=== PATIENT | female | born 1940 | race Caucasian/White ===

== ENCOUNTER 2016-08-25 16:42 | Emergency (ER) | payer MEDICARE, BC ==
[~2016-08-25] VITALS: Ht 165.1 cm; Wt 63.5 kg
[~2016-08-25 16:42] MED LIST: AMIT25TA9 PO; ATOR40TA PO; FLUO40CA8 PO; HYDR12.5 PO
--- NOTE | 2016-08-25 17:00 | NUR ---
aaox3, came to er c/o NAUSEA X 2 WEEKS, DENIES ANY VOMITING, DIARRHEA, OR ABD PAIN. Resp is even and unlabored with nad noted. skin is warm and non diaphoretic. Dr Alexis at BS for eval.
[2016-08-25 17:29] LABS: BASOPHILS % (AUTO) 0.6 % (0.0-2.0); EOSINOPHILS # (AUTO) 0.1 /CMM (0.0-0.7); EOSINOPHILS % (AUTO) 1.4 % (0.0-6.0); HEMATOCRIT 47 % (33-45); HEMOGLOBIN 14.9 g/dL (11.5-14.8); LYMPHOCYTES # (AUTO) 2.3 /CMM (0.8-4.8); LYMPHOCYTES % (AUTO) 29.2 % (20.0-44.0); MEAN CORPUSCULAR HEMOGLOBIN 28 PG (26.0-33.0); MEAN CORPUSCULAR HGB CONC 32 g/dl (31.0-36.0); MEAN CORPUSCULAR VOLUME 87 fL (82-100); MONOCYTES # (AUTO) 0.7 /CMM (0.1-1.30); NEUTROPHILS # (AUTO) 4.9 /CMM (1.8-8.9); NEUTROPHILS % (AUTO) 59.8 % (43.0-81.0); PLATELET COUNT (AUTO) 217 /CMM (150-450); RDW COEFFICIENT OF VARIATION 13.2 (11.5-15.0)
[2016-08-25] MEDS ORDERED: IV LR 1000 ML 1,000 ML IV ONE (17:30)
[2016-08-25] MEDS ORDERED: ONDANSETRON HCL/PF 4 MG/2 ML VIAL IVP ONE (17:30)
[2016-08-25] MEDS ORDERED: ONDANSETRON HCL/PF 4 MG/2 ML VIAL ONE (17:31)
[2016-08-25] MEDS ORDERED: IV LR 1000 ML 1,000 ML ONE (17:31)
[2016-08-25] MEDS ORDERED: IV SET PRIMARY 1 EA INFUS.SET MC ONE (17:31)
--- NOTE | 2016-08-25 17:31 | NUR ---
PT REFUSING CT SCAN, DR. SAMS IS AWARE.
[2016-08-25] MEDS ORDERED: LORAZEPAM 1 MG TABLET ONE (17:36)
--- NOTE | 2016-08-25 17:38 | NUR ---
Patient refused CT scan, Dr Alexis made aware.
[2016-08-25 17:39] LABS: CALCIUM, SERUM 9.4 mg/dL (8.5-10.1); CARBON DIOXIDE 30 mmol/L (21-32); CHLORIDE 104 mmol/L (98-107); GLUCOSE 97 mg/dL (74-106); POTASSIUM 3.6 mmol/L (3.5-5.1); SODIUM SERUM 141 mmol/L (136-145); UREA NITROGEN, BLOOD 9 mg/dL (7-18)
[2016-08-25 17:43] LABS: INR 0.97 (0.87-1.13); PROTHROMBIN TIME 10.1 SECS (9.5-12.7)
[2016-08-25 17:45] LABS: ALANINE AMINOTRANSFERASE 24 U/L (12-78); ALBUMIN 3.7 g/dL (3.4-5.0); ALKALINE PHOSPHATASE 76 U/L (46-116); ASPARTATE AMINOTRANSFERASE 21 U/L (15-37); BILIRUBIN,DIRECT 0.1 mg/dL (0.0-0.2); BILIRUBIN,TOTAL 0.7 mg/dL (0.2-1.0); LIPASE 198 U/L (73-393); TOTAL PROTEIN, SERUM 7.3 g/dL (6.4-8.2)
[2016-08-25 17:47] LABS: TROPONIN I < 0.017 ng/mL (0.00-0.056)
[2016-08-25 17:59] LABS: SERUM AMMONIA 6 umol/L (11-32)
[2016-08-25] MEDS ORDERED: LORAZEPAM 1 MG TABLET PO ONE (18:00)
[2016-08-25 18:27] VITALS: BP 132/81
--- NOTE | 2016-08-25 18:27 | NUR ---
IV removed. Catheter intact and site benign. Pressure and 4x4 applied to site. No bleeding noted.Patient discharged to home in stable condition. Written and verbal after care instructions given. Patient verbalizes understanding of instruction.
== END 2016-08-25 18:28 | disposition home or self-care (01) ==
LOC: ER 16:47
DX: F41.9 Anxiety disorder, unspecified (principal); F32.9 Major depressive disorder, single episode, unspecified; I10 Essential (primary) hypertension; R79.1 Abnormal coagulation profile
CPT/HCPCS: 36415; 80048-TC; 80076-TC; 82140-TC; 83690-TC; 84484-TC; 85025-TC; 85730-TC; A4606; J2405; J7120; Z7610

== ENCOUNTER 2016-10-28 16:28 | Emergency (ER) | payer MEDICARE, BC ==
[~2016-10-28] VITALS: Ht 162.6 cm; Wt 63.5 kg
--- NOTE | 2016-10-28 16:57 | NUR ---
PRESENTS SELF TO ED DT NAUSEA AND VOMITTING X 2 DAYS. PATIENT IS AAO3, APPEARS IN NO APPARENT DISTRESS, RESPIRATION EVENA AND UNLABORED,. SKIN IS WARM TO TOUCH AND NON DIAPHORETIC,. PATIENT IS AFEBRILE. VSS
[2016-10-28] MEDS ORDERED: IV SET PRIMARY 1 EA INFUS.SET MC ONE (17:06)
[2016-10-28] MEDS ORDERED: ONDANSETRON HCL/PF 4 MG/2 ML VIAL ONE (17:06)
[2016-10-28] MEDS ORDERED: IV D5 LR 500 ML IV ONE (17:06)
[2016-10-28] MEDS ORDERED: PANTOPRAZOLE 40 MG VIAL ONE (17:06)
[2016-10-28 17:12] LABS: BASOPHILS # (AUTO) 0.1 /CMM (0.0-0.2); EOSINOPHILS # (AUTO) 0.1 /CMM (0.0-0.7); EOSINOPHILS % (AUTO) 0.7 % (0.0-6.0); HEMATOCRIT 48 % (33-45); HEMOGLOBIN 15.6 g/dL (11.5-14.8); LYMPHOCYTES # (AUTO) 1.8 /CMM (0.8-4.8); MEAN CORPUSCULAR HEMOGLOBIN 28 PG (26.0-33.0); MEAN CORPUSCULAR HGB CONC 33 g/dl (31.0-36.0); MEAN CORPUSCULAR VOLUME 86 fL (82-100); MONOCYTES # (AUTO) 0.7 /CMM (0.1-1.30); MONOCYTES % (AUTO) 9.4 % (2.0-12.0); NEUTROPHILS # (AUTO) 4.7 /CMM (1.8-8.9); NEUTROPHILS % (AUTO) 64.9 % (43.0-81.0); PLATELET COUNT (AUTO) 266 /CMM (150-450); RDW COEFFICIENT OF VARIATION 13.3 (11.5-15.0); RED BLOOD CELL COUNT(AUTO) 5.58 MIL/uL (4.0-5.2); WHITE BLOOD COUNT (AUTO) 7.4 K/uL (4.3-11.0)
--- NOTE | 2016-10-28 17:16 | NUR ---
MEDICATED PT ORDERED
--- NOTE | 2016-10-28 17:17 | NUR ---
MEDICATED PT ORDERED
[2016-10-28 17:25] LABS: ALANINE AMINOTRANSFERASE 33 U/L (12-78); ALBUMIN 4.1 g/dL (3.4-5.0); ALKALINE PHOSPHATASE 79 U/L (46-116); ASPARTATE AMINOTRANSFERASE 25 U/L (15-37); BILIRUBIN,DIRECT 0.2 mg/dL (0.0-0.2); BILIRUBIN,TOTAL 0.7 mg/dL (0.2-1.0); CALCIUM, SERUM 9.9 mg/dL (8.5-10.1); CARBON DIOXIDE 25 mmol/L (21-32); CHLORIDE 109 mmol/L (98-107); GLUCOSE 99 mg/dL (74-106); LIPASE 168 U/L (73-393); SODIUM SERUM 141 mmol/L (136-145); TOTAL PROTEIN, SERUM 7.8 g/dL (6.4-8.2); UREA NITROGEN, BLOOD 10 mg/dL (7-18)
[2016-10-28] MEDS ORDERED: ONDANSETRON HCL/PF 4 MG/2 ML VIAL IV ONE (17:30)
[2016-10-28] MEDS ORDERED: PANTOPRAZOLE 40 MG VIAL IV ONE (17:30)
[2016-10-28] MEDS ORDERED: IV LR 500 ML IV ONE (17:30)
[2016-10-28] MEDS ORDERED: diphenhydrAMINE HCL 50 MG/ML VIAL ONE (18:07)
[2016-10-28] MEDS ORDERED: LORAZEPAM INJ 2 MG/ML VIAL ONE (18:08)
[2016-10-28] MEDS ORDERED: PROMETHAZINE HCL 25 MG/ML AMPUL ONE (18:13)
[2016-10-28] MEDS ORDERED: LORAZEPAM INJ 2 MG/ML VIAL IV ONE (18:30)
[2016-10-28] MEDS ORDERED: PROMETHAZINE HCL 25 MG/ML AMPUL IV ONE (18:30)
[2016-10-28 19:10] VITALS: BP 122/71
--- NOTE | 2016-10-28 19:11 | NUR ---
Patient discharged to home in stable condition. Written and verbal after care instructions given. Patient verbalizes understanding of instruction.
--- NOTE | 2016-10-28 19:11 | NUR ---
IV removed. Catheter intact and site benign. Pressure and 4x4 applied to site. No bleeding noted.
== END 2016-10-28 19:11 | disposition home or self-care (01) ==
LOC: ER 16:42
DX: R11.2 Nausea with vomiting, unspecified (principal); F32.9 Major depressive disorder, single episode, unspecified; F41.9 Anxiety disorder, unspecified; I10 Essential (primary) hypertension
CPT/HCPCS: 36415; 80048; 80076; 83690; 85025; 93005; 96361; 96374; 96375; 99285; A4606; C9113; J1200; J2060; J2405; J2550; J3490; J7120; Z7610

== ENCOUNTER 2016-10-29 12:35 | Emergency (ER) | payer MEDICARE, BC ==
[~2016-10-29] VITALS: Ht 165.1 cm; Wt 62.6 kg
[2016-10-29] MEDS ORDERED: IV NS 0.9% 1,000 ML ONE (12:50)
[2016-10-29] MEDS ORDERED: IV SET PRIMARY 1 EA INFUS.SET MC ONE (12:50)
--- NOTE | 2016-10-29 12:56 | NUR ---
PRESENTS SELF TO ED DT NAUSEA AND VOMITTING, PATIENT TO ED YESTERDAY FOR SAME REASON. PATIENT IS AAO3, APPEARS IN NO APPARENT DISTRESS, RESPIRATION EVENA AND UNLABORED,. SKIN IS WARM TO TOUCH AND NON DIAPHORETIC,. PATIENT IS AFEBRILE. VSS
--- NOTE | 2016-10-29 12:58 | NUR ---
ACCESSED IV TO RIGHT WRIST 20. BLOOD SAMPLE SENT TO LAB
[2016-10-29] MEDS ORDERED: IV NS 0.9% 1,000 ML BAG IV ONE (13:00)
[2016-10-29 13:02] LABS: BASOPHILS # (AUTO) 0.1 /CMM (0.0-0.2); BASOPHILS % (AUTO) 0.7 % (0.0-2.0); EOSINOPHILS % (AUTO) 0.2 % (0.0-6.0); HEMATOCRIT 43 % (33-45); HEMOGLOBIN 14.6 g/dL (11.5-14.8); LYMPHOCYTES # (AUTO) 1.7 /CMM (0.8-4.8); LYMPHOCYTES % (AUTO) 22.8 % (20.0-44.0); MEAN CORPUSCULAR HEMOGLOBIN 29 PG (26.0-33.0); MEAN CORPUSCULAR HGB CONC 34 g/dl (31.0-36.0); MEAN CORPUSCULAR VOLUME 86 fL (82-100); MONOCYTES # (AUTO) 0.5 /CMM (0.1-1.30); MONOCYTES % (AUTO) 7.5 % (2.0-12.0); NEUTROPHILS % (AUTO) 68.8 % (43.0-81.0); PLATELET COUNT (AUTO) 246 /CMM (150-450); RDW COEFFICIENT OF VARIATION 13.7 (11.5-15.0); RED BLOOD CELL COUNT(AUTO) 5.08 MIL/uL (4.0-5.2); WHITE BLOOD COUNT (AUTO) 7.3 K/uL (4.3-11.0)
[2016-10-29 13:11] LABS: CALCIUM, SERUM 9.5 mg/dL (8.5-10.1); CARBON DIOXIDE 24 mmol/L (21-32); CHLORIDE 110 mmol/L (98-107); CREATININE 0.9 mg/dL (0.6-1.3); GLUCOSE 102 mg/dL (74-106); POTASSIUM 3.2 mmol/L (3.5-5.1); SODIUM SERUM 141 mmol/L (136-145); UREA NITROGEN, BLOOD 9 mg/dL (7-18)
[2016-10-29 13:19] LABS: TROPONIN I < 0.017 ng/mL (0.00-0.056)
[2016-10-29] MEDS ORDERED: METOCLOPRAMIDE HCL 10 MG/2 ML VIAL ONE (13:25)
[2016-10-29 13:26] LABS: ALANINE AMINOTRANSFERASE 27 U/L (12-78); ALBUMIN 3.7 g/dL (3.4-5.0); ALKALINE PHOSPHATASE 72 U/L (46-116); ASPARTATE AMINOTRANSFERASE 24 U/L (15-37); BILIRUBIN,DIRECT 0.2 mg/dL (0.0-0.2); BILIRUBIN,TOTAL 0.6 mg/dL (0.2-1.0); LIPASE 248 U/L (73-393); TOTAL PROTEIN, SERUM 7.3 g/dL (6.4-8.2)
[2016-10-29] MEDS ORDERED: diphenhydrAMINE HCL 50 MG/ML VIAL ONE ×2 (13:26→14:51)
[2016-10-29] MEDS ORDERED: LORAZEPAM INJ 2 MG/ML VIAL ONE (13:29)
[2016-10-29] MEDS ORDERED: diphenhydrAMINE HCL 50 MG/ML VIAL IV ONE ×2 (13:30→15:00)
[2016-10-29] MEDS ORDERED: METOCLOPRAMIDE HCL 10 MG/2 ML VIAL IV ONE (13:30)
[2016-10-29] MEDS ORDERED: ONDANSETRON HCL/PF 4 MG/2 ML VIAL ONE (13:51)
[2016-10-29] MEDS ORDERED: POTASSIUM CHLORIDE 20 MEQ TAB.PRT.SR PO ONE ×2 (13:56→14:00)
[2016-10-29] MEDS ORDERED: LORAZEPAM INJ 2 MG/ML VIAL IV ONE (14:00)
[2016-10-29] MEDS ORDERED: ONDANSETRON HCL/PF - ER 4 MG/2 ML VIAL IV ONE (14:00)
[2016-10-29] MEDS ORDERED: PROMETHAZINE HCL 25 MG/ML AMPUL IV ONE (14:30)
[2016-10-29 14:46] LABS: APPEARANCE,URINE Turbid (CLEAR); BILIRUBIN,URINE SMALL (NEGATIVE); BLOOD, URINE Moderate Ery/uL (NEGATIVE); COLOR,URINE Dark Yellow (YELLOW); KETONES,URINE 15 (NEGATIVE); LEUKOCYTE ESTERASE ,URINE Large (NEGATIVE); NITRITE, URINE Negative (NEGATIVE); PH,URINE 5.5 (5.0-8.0); PROTEIN,URINE 100 mg/dl (NEGATIVE); UGLUCOSE Negative (NEGATIVE); UROBILINOGEN,URINE 0.2 EU/dL (0.2)
[2016-10-29] MEDS ORDERED: PROMETHAZINE HCL 25 MG/ML AMPUL ONE (14:51)
[2016-10-29] MEDS ORDERED: IV NS 0.9% 500 ML IV ONE ×2 (14:51→15:00)
[2016-10-29 14:53] LABS: BACTERIA,URINE Few /HPF (None Seen); SQUAMOUS EPITHELIAL CELL,UR Few /HPF (None Seen); URINE AMORPHOUS URATE Few /HPF (None Seen); WBC,URINE 80-100 /HPF (0-3)
[2016-10-29] MEDS ORDERED: CEPHALEXIN MONOHYDRATE 500 MG CAPSULE PO ONE (15:30)
[2016-10-29] MEDS ORDERED: CEPHALEXIN MONOHYDRATE 250 MG CAPSULE PO ONE (15:45)
[2016-10-29 16:43] VITALS: BP 130/65
--- NOTE | 2016-10-29 16:43 | NUR ---
IV removed. Catheter intact and site benign. Pressure and 4x4 applied to site. No bleeding noted.Patient discharged to home in stable condition. Written and verbal after care instructions given. Patient verbalizes understanding of instruction. ambulatory with a steady gait.
== END 2016-10-29 16:44 | disposition home or self-care (01) ==
LOC: ER 12:36
DX: N39.0 Urinary tract infection, site not specified (principal); R11.2 Nausea with vomiting, unspecified; R19.7 Diarrhea, unspecified; F32.9 Major depressive disorder, single episode, unspecified; I10 Essential (primary) hypertension; F41.9 Anxiety disorder, unspecified
CPT/HCPCS: 36415; 71010; 80048; 80076; 81001; 82962; 83690; 84484; 85025; 93005; 96361; 96374; 96375; 99285; A4606; J1200; J2060; J2405; J2550; J7030; J7040; 81000-TC; J2765; Z7610

== ENCOUNTER 2016-12-05 18:03 | Emergency (ER) | payer MEDICARE, BC ==
[~2016-12-05] VITALS: Ht 152.4 cm; Wt 52.2 kg
--- NOTE | 2016-12-05 18:33 | NUR ---
DIARRHEA X 3 DAYS GOWNED PT AWAITING MD ORDER
--- NOTE | 2016-12-05 18:38 | NUR ---
DR GONZALEZ AT BEDSIDE FOR EVAL
--- NOTE | 2016-12-05 18:45 | NUR ---
LFA #20 IV ACCESS. BLOOD SAMPLE COLLECTED SENT TO LAB
[2016-12-05] MEDS ORDERED: ONDANSETRON HCL/PF 4 MG/2 ML VIAL ONE ×2 (18:59→20:30)
[2016-12-05 19:00] LABS: BASOPHILS # (AUTO) 0.1 /CMM (0.0-0.2); BASOPHILS % (AUTO) 0.7 % (0.0-2.0); EOSINOPHILS # (AUTO) 0.6 /CMM (0.0-0.7); EOSINOPHILS % (AUTO) 6.5 % (0.0-6.0); HEMATOCRIT 48 % (33-45); HEMOGLOBIN 15.8 g/dL (11.5-14.8); LYMPHOCYTES # (AUTO) 2.9 /CMM (0.8-4.8); LYMPHOCYTES % (AUTO) 33.1 % (20.0-44.0); MEAN CORPUSCULAR HEMOGLOBIN 28 PG (26.0-33.0); MEAN CORPUSCULAR HGB CONC 33 g/dl (31.0-36.0); MEAN CORPUSCULAR VOLUME 85 fL (82-100); MONOCYTES # (AUTO) 0.9 /CMM (0.1-1.30); MONOCYTES % (AUTO) 10.8 % (2.0-12.0); NEUTROPHILS # (AUTO) 4.2 /CMM (1.8-8.9); NEUTROPHILS % (AUTO) 48.9 % (43.0-81.0); PLATELET COUNT (AUTO) 287 /CMM (150-450); RDW COEFFICIENT OF VARIATION 13.5 (11.5-15.0); RED BLOOD CELL COUNT(AUTO) 5.63 MIL/uL (4.0-5.2); WHITE BLOOD COUNT (AUTO) 8.7 K/uL (4.3-11.0)
[2016-12-05] MEDS ORDERED: ONDANSETRON HCL/PF 4 MG/2 ML VIAL IVP ONE (19:00)
[2016-12-05] MEDS ORDERED: IV NS 0.9% 500 ML BAG IV ONE (19:00)
--- NOTE | 2016-12-05 19:00 | NUR ---
LOGGING EQUIPMENT OPERATOR AT BEDSIDE
[2016-12-05 19:07] LABS: CALCIUM, SERUM 9.7 mg/dL (8.5-10.1); CARBON DIOXIDE 31 mmol/L (21-32); CHLORIDE 100 mmol/L (98-107); GLUCOSE 103 mg/dL (74-106); POTASSIUM 3.2 mmol/L (3.5-5.1); SODIUM SERUM 138 mmol/L (136-145); UREA NITROGEN, BLOOD 11 mg/dL (7-18)
[2016-12-05 19:13] LABS: ALANINE AMINOTRANSFERASE 27 U/L (12-78); ALBUMIN 3.8 g/dL (3.4-5.0); ALKALINE PHOSPHATASE 118 U/L (46-116); ASPARTATE AMINOTRANSFERASE 24 U/L (15-37); BILIRUBIN,DIRECT 0.1 mg/dL (0.0-0.2); BILIRUBIN,TOTAL 0.6 mg/dL (0.2-1.0); LIPASE 143 U/L (73-393); TOTAL PROTEIN, SERUM 7.7 g/dL (6.4-8.2)
--- NOTE | 2016-12-05 19:23 | NUR ---
PATIENT TAKEN TO CT VIA WC
--- NOTE | 2016-12-05 19:24 | NUR ---
ENDORSE TO PAT FOR YUMIKO
--- NOTE | 2016-12-05 19:25 | NUR ---
PATIENT TO CT.
[2016-12-05 20:10] LABS: APPEARANCE,URINE Slightly Cloudy (CLEAR); BILIRUBIN,URINE Negative (NEGATIVE); BLOOD, URINE Trace-intact Ery/uL (NEGATIVE); COLOR,URINE Yellow (YELLOW); KETONES,URINE Negative (NEGATIVE); LEUKOCYTE ESTERASE ,URINE Small (NEGATIVE); NITRITE, URINE Negative (NEGATIVE); PROTEIN,URINE Negative (NEGATIVE); UGLUCOSE Negative (NEGATIVE); UROBILINOGEN,URINE 0.2 EU/dL (0.2)
[2016-12-05 20:20] LABS: BACTERIA,URINE Few /HPF (None Seen); SQUAMOUS EPITHELIAL CELL,UR Few /HPF (None Seen)
[2016-12-05] MEDS ORDERED: POTASSIUM CHLORIDE 20 MEQ TAB.PRT.SR PO ONE ×2 (20:30)
[2016-12-05] MEDS ORDERED: ONDANSETRON HCL/PF - ER 4 MG/2 ML VIAL IV ONE (20:30)
--- NOTE | 2016-12-05 20:56 | NUR ---
IV removed. Catheter intact and site benign. Pressure and 4x4 applied to site. No bleeding noted. Patient discharged to home in stable condition. Written and verbal after care instructions given. Patient verbalizes understanding of instruction. Patient is ambulatory with steady gait, and said she will be picked up by her friend. No further complaints.
[2016-12-05 20:57] VITALS: BP 129/85
== END 2016-12-05 20:58 | disposition home or self-care (01) ==
LOC: ER 18:05
DX: N39.0 Urinary tract infection, site not specified (principal); R19.7 Diarrhea, unspecified; E86.0 Dehydration; E87.6 Hypokalemia; F32.9 Major depressive disorder, single episode, unspecified; F41.9 Anxiety disorder, unspecified; I10 Essential (primary) hypertension; K76.0 Fatty (change of) liver, not elsewhere classified
CPT/HCPCS: 36415; 74176; 76705; 80048; 80076; 81001; 83690; 85025; 87086; 96374 ×2; 99285; A4606; J2405 ×3; J7040; 71250-TC; 81000-TC; Z7610

== ENCOUNTER 2017-02-18 15:43 | Emergency (ER) | payer MEDICARE, BC ==
[~2017-02-18] VITALS: Ht 165.1 cm; Wt 61.2 kg
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
[2017-02-18] MEDS ORDERED: IV NS 0.9% 1,000 ML BAG IV ONE (16:30)
[2017-02-18] MEDS ORDERED: METOCLOPRAMIDE HCL 10 MG/2 ML VIAL IV ONE (16:30)
--- NOTE | 2017-02-18 16:30 | NUR ---
RFA #18 IV ACCESS. BLOOD SAMPLE COLLECTED SENT TO LAB
[2017-02-18 16:32] LABS: BASOPHILS # (AUTO) 0.1 /CMM (0.0-0.2); BASOPHILS % (AUTO) 0.8 % (0.0-2.0); EOSINOPHILS # (AUTO) 0.2 /CMM (0.0-0.7); EOSINOPHILS % (AUTO) 2.2 % (0.0-6.0); HEMATOCRIT 44 % (33-45); HEMOGLOBIN 14.5 g/dL (11.5-14.8); LYMPHOCYTES # (AUTO) 2.2 /CMM (0.8-4.8); LYMPHOCYTES % (AUTO) 30.8 % (20.0-44.0); MEAN CORPUSCULAR HEMOGLOBIN 28 PG (26.0-33.0); MEAN CORPUSCULAR HGB CONC 33 g/dl (31.0-36.0); MEAN CORPUSCULAR VOLUME 86 fL (82-100); MONOCYTES # (AUTO) 0.8 /CMM (0.1-1.30); MONOCYTES % (AUTO) 11.1 % (2.0-12.0); NEUTROPHILS # (AUTO) 3.8 /CMM (1.8-8.9); NEUTROPHILS % (AUTO) 55.1 % (43.0-81.0); PLATELET COUNT (AUTO) 269 /CMM (150-450); RDW COEFFICIENT OF VARIATION 13.8 (11.5-15.0); RED BLOOD CELL COUNT(AUTO) 5.18 MIL/uL (4.0-5.2); WHITE BLOOD COUNT (AUTO) 7.1 K/uL (4.3-11.0)
[2017-02-18] MEDS ORDERED: METOCLOPRAMIDE HCL 10 MG/2 ML VIAL ONE (16:34)
--- NOTE | 2017-02-18 16:39 | NUR ---
PT TAKEN TO XRAY
[2017-02-18 16:43] LABS: CALCIUM, SERUM 9.7 mg/dL (8.5-10.1); CARBON DIOXIDE 29 mmol/L (21-32); CHLORIDE 105 mmol/L (98-107); CREATININE 0.9 mg/dL (0.6-1.3); GLUCOSE 96 mg/dL (74-106); SODIUM SERUM 140 mmol/L (136-145); UREA NITROGEN, BLOOD 9 mg/dL (7-18)
[2017-02-18 16:47] LABS: PROTHROMBIN TIME 10.4 SECS (9.5-12.7)
[2017-02-18 16:49] LABS: ALANINE AMINOTRANSFERASE 26 U/L (12-78); ALBUMIN 3.5 g/dL (3.4-5.0); ALKALINE PHOSPHATASE 88 U/L (46-116); ASPARTATE AMINOTRANSFERASE 23 U/L (15-37); BILIRUBIN,DIRECT 0.1 mg/dL (0.0-0.2); BILIRUBIN,TOTAL 0.6 mg/dL (0.2-1.0); LIPASE 205 U/L (73-393); POTASSIUM 2.8 mmol/L (3.5-5.1); TOTAL PROTEIN, SERUM 7.1 g/dL (6.4-8.2)
[2017-02-18 16:50] LABS: TROPONIN I < 0.017 ng/mL (0.00-0.056)
[2017-02-18 17:09] LABS: BILIRUBIN,URINE SMALL (NEGATIVE); BLOOD, URINE Trace-intact Ery/uL (NEGATIVE); COLOR,URINE Yellow (YELLOW); KETONES,URINE 40 (NEGATIVE); LEUKOCYTE ESTERASE ,URINE Small (NEGATIVE); NITRITE, URINE Positive (NEGATIVE); PH,URINE 5.5 (5.0-8.0); PROTEIN,URINE 30 mg/dl (NEGATIVE); UGLUCOSE Negative (NEGATIVE); UROBILINOGEN,URINE 0.2 EU/dL (0.2)
[2017-02-18 17:59] LABS: APPEARANCE,URINE HAZY (CLEAR); BACTERIA,URINE Many /HPF (None Seen); RBC,URINE 0-2 /HPF (0-2); SQUAMOUS EPITHELIAL CELL,UR Few /HPF (None Seen); WBC,URINE TOO NUMEROUS TO COUN /HPF (0-3)
--- NOTE | 2017-02-18 18:12 | NUR ---
IV removed. Catheter intact and site benign. Pressure and 4x4 applied to site. No bleeding noted.
--- NOTE | 2017-02-18 18:12 | NUR ---
Patient discharged to home in stable condition. Written and verbal after care instructions given. Patient verbalizes understanding of instruction.
[2017-02-18 18:13] VITALS: BP 130/75
== END 2017-02-18 18:16 | disposition home or self-care (01) ==
LOC: ER 15:48
DX: N39.0 Urinary tract infection, site not specified (principal); R51 Headache; F32.9 Major depressive disorder, single episode, unspecified; F41.9 Anxiety disorder, unspecified; I10 Essential (primary) hypertension; R79.1 Abnormal coagulation profile
CPT/HCPCS: 36415; 70450; 80048; 80076; 81001; 83690; 84484; 85025; 85730; 87077; 87086; 87186; 96361; 96374; 99285; A4606; J2765; J7030; 81000-TC; Z7610

== ENCOUNTER 2017-03-19 05:45 | Emergency (ER) | payer MEDICARE, BC ==
[~2017-03-19] VITALS: Ht 154.9 cm; Wt 56.7 kg
--- NOTE | 2017-03-19 06:00 | NUR ---
PT CAME IN TO ER WITH C/O OF CHEST PAIN. A/O X3. O2 SATING AT 98% ON ROOM AIR. PT STATES SHE TOOK 2 SLEEPING PILLS FOLLOWED BY 4 MORE SLEEPING PILLS BECAUSE THE MEDS WERE NOT WORKING. NO S/S OF DROWSINESS OR SOB. PLACED ON MONITOR, TELE READS SR.
[2017-03-19] MEDS ORDERED: LORAZEPAM INJ 2 MG/ML VIAL ONE ×2 (06:10→06:55)
[2017-03-19] MEDS ORDERED: ASPIRIN 325 MG TABLET ONE (06:23)
[2017-03-19] MEDS ORDERED: IV NS 0.9% 1,000 ML BAG IV ONE (06:30)
[2017-03-19] MEDS ORDERED: ASPIRIN 325 MG TABLET PO ONE (06:30)
[2017-03-19] MEDS ORDERED: LORAZEPAM INJ 2 MG/ML VIAL IV ONE ×2 (06:30→07:00)
[2017-03-19 06:39] LABS: CALCIUM, SERUM 10.7 mg/dL (8.5-10.1); CARBON DIOXIDE 32 mmol/L (21-32); CHLORIDE 99 mmol/L (98-107); CREATININE 1.1 mg/dL (0.6-1.3); GLUCOSE 138 mg/dL (74-106); SODIUM SERUM 140 mmol/L (136-145); UREA NITROGEN, BLOOD 11 mg/dL (7-18)
[2017-03-19 06:42] LABS: INR 0.98 (0.87-1.13); POTASSIUM 2.8 mmol/L (3.5-5.1); PROTHROMBIN TIME 10.2 SECS (9.5-12.7)
[2017-03-19 06:46] LABS: TROPONIN I < 0.017 ng/mL (0.00-0.056)
[2017-03-19] MEDS ORDERED: POTASSIUM CHLORIDE 20 MEQ TAB.PRT.SR PO ONE ×2 (06:55→07:00)
[2017-03-19 07:34] LABS: BASOPHILS # (AUTO) 0.1 /CMM (0.0-0.2); EOSINOPHILS # (AUTO) 0.1 /CMM (0.0-0.7); EOSINOPHILS % (AUTO) 1.9 % (0.0-6.0); HEMATOCRIT 49 % (33-45); HEMOGLOBIN 16.9 g/dL (11.5-14.8); LYMPHOCYTES # (AUTO) 1.7 /CMM (0.8-4.8); LYMPHOCYTES % (AUTO) 27.6 % (20.0-44.0); MEAN CORPUSCULAR HEMOGLOBIN 29 PG (26.0-33.0); MEAN CORPUSCULAR HGB CONC 34 g/dl (31.0-36.0); MEAN CORPUSCULAR VOLUME 85 fL (82-100); MONOCYTES # (AUTO) 0.5 /CMM (0.1-1.30); MONOCYTES % (AUTO) 8.5 % (2.0-12.0); NEUTROPHILS # (AUTO) 3.8 /CMM (1.8-8.9); PLATELET COUNT (AUTO) 265 /CMM (150-450); RDW COEFFICIENT OF VARIATION 13.5 (11.5-15.0); RED BLOOD CELL COUNT(AUTO) 5.82 MIL/uL (4.0-5.2); WHITE BLOOD COUNT (AUTO) 6.2 K/uL (4.3-11.0)
--- NOTE | 2017-03-19 09:16 | NUR ---
IV removed. Catheter intact and site benign. Pressure and 4x4 applied to site. No bleeding noted.
--- NOTE | 2017-03-19 09:16 | NUR ---
Patient discharged to home in stable condition. Written and verbal after care instructions given. Patient verbalizes understanding of instruction.
[2017-03-19 09:17] VITALS: BP 144/71
--- NOTE | 2017-03-19 09:22 | NUR ---
CALLED SW. MACKENZIE LEFT A VOICEMAIL.
--- NOTE | 2017-03-19 09:45 | NUR ---
SHOE PACKER AND ASSEMBLY LOADER AT BEDSIDE FOR EVAL
--- NOTE | 2017-03-19 10:03 | NUR ---
Social service consult requested by LUDWIG Fields to assess home safety. Pt. is a 77 year old female who was admitted to [facility] for dizziness. SHAWNA and case manger Marissa met with pt. bedside. Pt's caregiver Lauren was bedside as well. Pt. is alert and oriented x 4. Pt. resides alone and has her caregiver three times a week from 9AM to 1PM. Pt's caregiver Lauren informed SW that she will inquire with pt's son Freddie if she can provide more caregiving hours to the patient since she has availability. geophysical manager Marissa inquired with pt. if she would like skilled rehab placement at this time. Pt. declined. Pt. is willing to have home health arranged at home. Marissa to arrange home health for pt. and follow up with caregiver Lauren once scheduled. Lauren's contact is . SHAWNA updated ED physician regarding discharge plan.
== END 2017-03-19 09:51 | disposition home or self-care (01) ==
LOC: ER 05:48
DX: T50.901A Poisoning by unspecified drugs, medicaments and biological substances, accidental (unintentional), initial encounter (principal); F41.9 Anxiety disorder, unspecified; F32.9 Major depressive disorder, single episode, unspecified; I10 Essential (primary) hypertension; R79.1 Abnormal coagulation profile; Z79.82 Long term (current) use of aspirin; Y92.89 Other specified places as the place of occurrence of the external cause
CPT/HCPCS: 36415; 71010; 80048; 85025; 85730; 84484; 93005; 96361; 96374; 96376; 99285; A4606; J2060 ×2; J7030; Z7610

== ENCOUNTER 2017-03-23 15:14 | Inpatient (IN) | payer MEDICARE, BC ==
[~2017-03-23] VITALS: Ht 165.1 cm; Wt 59.0 kg
--- NOTE | 2017-03-23 15:14 | NUR ---
BIB CAREGIVER FROM HOME,ABDOMINAL PAIN,NAUSEA AND VOMITING SINCE THIS MORNING. NAD NOTED. PER PT "ZOFRAN DOESNT WORK FOR ME". MD EVALUATING PT AT THIS TIME. VSS. PT PLACED IN GOWN.
[2017-03-23] MEDS ORDERED: IV NS 0.9% 500 ML BAG IV ONE (15:30)
[2017-03-23] MEDS ORDERED: METOCLOPRAMIDE HCL 10 MG/2 ML VIAL ONE (15:39)
[2017-03-23 15:43] LABS: BASOPHILS # (AUTO) 0.1 /CMM (0.0-0.2); BASOPHILS % (AUTO) 0.9 % (0.0-2.0); EOSINOPHILS # (AUTO) 0.3 /CMM (0.0-0.7); EOSINOPHILS % (AUTO) 3.2 % (0.0-6.0); HEMATOCRIT 48 % (33-45); HEMOGLOBIN 16.2 g/dL (11.5-14.8); LYMPHOCYTES # (AUTO) 2.4 /CMM (0.8-4.8); LYMPHOCYTES % (AUTO) 27.5 % (20.0-44.0); MEAN CORPUSCULAR HEMOGLOBIN 29 PG (26.0-33.0); MEAN CORPUSCULAR HGB CONC 34 g/dl (31.0-36.0); MEAN CORPUSCULAR VOLUME 85 fL (82-100); MONOCYTES # (AUTO) 0.8 /CMM (0.1-1.30); MONOCYTES % (AUTO) 8.8 % (2.0-12.0); NEUTROPHILS # (AUTO) 5.3 /CMM (1.8-8.9); NEUTROPHILS % (AUTO) 59.6 % (43.0-81.0); PLATELET COUNT (AUTO) 255 /CMM (150-450); RDW COEFFICIENT OF VARIATION 13.4 (11.5-15.0); RED BLOOD CELL COUNT(AUTO) 5.66 MIL/uL (4.0-5.2); WHITE BLOOD COUNT (AUTO) 8.9 K/uL (4.3-11.0)
[2017-03-23 15:57] LABS: ALANINE AMINOTRANSFERASE 35 U/L (12-78); ALBUMIN 3.6 g/dL (3.4-5.0); ALKALINE PHOSPHATASE 82 U/L (46-116); ASPARTATE AMINOTRANSFERASE 26 U/L (15-37); BILIRUBIN,DIRECT 0.1 mg/dL (0.0-0.2); BILIRUBIN,TOTAL 0.5 mg/dL (0.2-1.0); CARBON DIOXIDE 33 mmol/L (21-32); CHLORIDE 97 mmol/L (98-107); CREATININE 0.9 mg/dL (0.6-1.3); GLUCOSE 106 mg/dL (74-106); LIPASE 1243 U/L (73-393); SODIUM SERUM 135 mmol/L (136-145); TOTAL PROTEIN, SERUM 7.6 g/dL (6.4-8.2); UREA NITROGEN, BLOOD 13 mg/dL (7-18)
[2017-03-23 16:00] LABS: TROPONIN I < 0.017 ng/mL (0.00-0.056)
[2017-03-23] MEDS ORDERED: METOCLOPRAMIDE HCL 10 MG/2 ML VIAL IV ONE (16:00)
[2017-03-23] MEDS ORDERED: ONDANSETRON HCL/PF 4 MG/2 ML VIAL IVP ONE (16:00)
[2017-03-23 16:01] LABS: POTASSIUM 2.8 mmol/L (3.5-5.1)
[2017-03-23] MEDS ORDERED: PROCHLORPERAZINE EDISYLATE 10 MG/2 ML VIAL ONE (16:46)
[2017-03-23] MEDS ORDERED: PROCHLORPERAZINE EDISYLATE 10 MG/2 ML VIAL IVP ONE (17:00)
[2017-03-23 18:24] LABS: APPEARANCE,URINE Clear (CLEAR); BILIRUBIN,URINE Negative (NEGATIVE); BLOOD, URINE Negative Ery/uL (NEGATIVE); COLOR,URINE Yellow (YELLOW); KETONES,URINE Trace (NEGATIVE); LEUKOCYTE ESTERASE ,URINE Moderate (NEGATIVE); NITRITE, URINE Positive (NEGATIVE); PROTEIN,URINE Negative (NEGATIVE); UGLUCOSE Negative (NEGATIVE); UROBILINOGEN,URINE 0.2 EU/dL (0.2)
[2017-03-23] MEDS ORDERED: LORA1TAB PO (18:32)
[2017-03-23] MEDS ORDERED: OLAN15TA3 PO (18:32)
[2017-03-23] MEDS ORDERED: CHOL4PAC2 PO (18:32)
[2017-03-23] MEDS ORDERED: ESCI10TA PO (18:32)
[2017-03-23] MEDS ORDERED: METO-295 PO (18:32)
[2017-03-23] MEDS ORDERED: HYDR25TA4 PO (18:32)
[2017-03-23] MEDS ORDERED: IOHEXOL-300 100 ML VIAL IV ONE (18:37)
[2017-03-23] MEDS ORDERED: IV NS 0.9% 250 ML IV ONE (18:37)
[2017-03-23 18:40] LABS: BACTERIA,URINE Many /HPF (None Seen); RBC,URINE 0-2 /HPF (0-2); SQUAMOUS EPITHELIAL CELL,UR Few /HPF (None Seen)
[2017-03-23] MEDS ORDERED: ONDANSETRON HCL/PF 4 MG/2 ML VIAL ONE ×2 (18:43→20:35)
[2017-03-23] MEDS ORDERED: ONDANSETRON HCL/PF - ER 4 MG/2 ML VIAL IV ONE ×2 (19:00→20:30)
--- NOTE | 2017-03-23 19:00 | NUR ---
assumed care: pt lying in bed, a/o x 3, breathing unlabored, skin warm/dry/intact, no c/o pain at this time, no c/o n/v, updated on plan of care.
--- NOTE | 2017-03-23 20:08 | NUR ---
REPORT CALLED TO TANNING WHEEL FILLER ALLA. PENDING HOSPITAL ADMISSION.
[2017-03-23] MEDS ORDERED: CEFTRIAXONE 1GM BAG (ER ONLY) 50 ML IV ONE (20:36)
[2017-03-23] MEDS: CEFTRIAXONE 1 G in IV D5W 50 ML IV SCH (20:40)
[2017-03-23] MEDS ORDERED: Z GUARD REMEDY 2 OZ OINT TP PRN (21:00)
[2017-03-23] MEDS ORDERED: MAG HYDROX/AL HYDROX/SIMETH 30 ML UDC PO PRN (21:00)
[2017-03-23] MEDS ORDERED: HYDROCODONE/APAP 5/325MG 1 EACH TABLET PO PRN (21:00)
[2017-03-23] MEDS ORDERED: HYDROMORPHONE INJ 2 MG/ML DISP.SYRIN IV PRN (21:00)
[2017-03-23] MEDS ORDERED: ACETAMINOPHEN 325 MG TABLET PO PRN (21:00)
[2017-03-23] MEDS ORDERED: MAGNESIUM HYDROXIDE 30 ML UDC PO PRN (21:00)
--- NOTE | 2017-03-23 21:00 | NUR ---
RN OPENING NOTES RECEIVED PATIENT FROM ED IN STABLE CONDITION. ALERT AND ORIENTED X4, VS STABLE. RESPIRATIONS EVEN AND UNLABORED. NO SOB NOTED. BS X4. PATIENT C/O NAUSEA. IV ACCESS ON RIGHT HAND #18 PATENT AND INTACT, FLUSHING WELL WITH NS. NO REDNESS OR INFILTRATION NOTED. AWAITING FOR MD ORDER. BED IN LOW AND LOCKED POSITION. SIDE RAILS X2. CALL LIGHT WITHIN EASY REACH. WILL CONTINUE TO MONITOR AND ASSESS DURING THE SHIFT.
[2017-03-23] MEDS: ONDANSETRON HCL/PF 4 MG/2 ML VIAL IVP PRN (21:43)
--- NOTE | 2017-03-23 21:43 | NUR ---
RN NOTES PATIENT C/O OF NAUSEA. ZOFRAN 4 MG/2 ML GIVEN PRN. CONTINUE TO MONITOR.
[2017-03-23] MEDS: IV NS 0.9% 1,000 ML IV PRN (21:59)
[2017-03-23 22:00] VITALS: BP 125/69
--- NOTE | 2017-03-23 23:30 | NUR ---
RN NOTES PATIENT C/O PAIN 10/30. PATIENT NPO. CALLED DR HE FOR ORDER DILAUDID IVP. DILAUDID IS OUT OF STOCK. CALLED BACK TO DR FINLEY TO GET PO PAIN MEDICATION.
--- NOTE | 2017-03-23 23:40 | NUR ---
RN NOTES OBTAINED AN ORDER FROM DR FINLEY TO ADMINISTER NORCO PO.
[2017-03-23] MEDS: ZOLPIDEM TARTRATE 5 MG TABLET PO PRN (23:57)
--- NOTE | 2017-03-24 00:03 | NUR ---
RN NOTES ADMINISTERED NORCO FOR PAIN. GAVE MEDICATION WITH A SIP OF WATER. CONTINUE TO MONITOR.
[2017-03-24] MEDS: ONDANSETRON HCL/PF 4 MG/2 ML VIAL IVP PRN (03:51)
[2017-03-24] MEDS: LORAZEPAM INJ 2 MG/ML VIAL IV PRN ×3 (05:03→13:47)
--- NOTE | 2017-03-24 05:03 | NUR ---
RN NOTES ATIVAN O.5 MG/0.25 ML ADMINISTERED IVP. CONTINUE TO MONITOR.
--- NOTE | 2017-03-24 06:56 | NUR ---
RN CLOSING NOTES PATIENT IS SLEEPING IN BED, EASY TO AROUSE, ALERT AND ORIENTED X4. VS STABLE. RESPIRATIONS EVEN AND UNLABORED. NO SOB NOTED. IV ACCESS ON RIGHT HAND #18 PATENT AND INTACT, INFUSING NS AT 100 ML/HR. NO REDNESS OR INFILTRATION NOTED. ALL NEEDS ARE MET AND MEDICATIONS GIVEN PER MD ORDER. BED IN LOW AND LOCKED POSITION. SIDE RAILS X2. CALL LIGHT WITHIN EASY REACH. WILL ENDORSE TO RN DAY SHIFT FOR CONTINUITY OF CARE.
[2017-03-24] MEDS ORDERED: HYDROMORPHONE INJ 2 MG/ML DISP.SYRIN IV PRN (07:00)
--- NOTE | 2017-03-24 07:35 | NUR ---
RN NOTES PATIENT ASLEEP COMFORTABLY IN BED, EASILY AROUSABLE DURING CARE, ABLE TO MAKE NEEDS KNOWN. RESPIRATIONS EVEN AND UNLABORED, CONTINUED ON PAIN MANAGEMENT AT THIS TIME. IV ACCESS TO RIGHT HAND PATENT AND INTACT NO REDNESS OR INFILTRATION NOTED.SAFETY MEASURES IN PLACE, WILL CONTINUE TO MONITOR
[2017-03-24 07:41] LABS: BASOPHILS % (AUTO) 0.4 % (0.0-2.0); EOSINOPHILS # (AUTO) 0.1 /CMM (0.0-0.7); EOSINOPHILS % (AUTO) 1.8 % (0.0-6.0); HEMATOCRIT 48 % (33-45); HEMOGLOBIN 15.7 g/dL (11.5-14.8); LYMPHOCYTES # (AUTO) 1.8 /CMM (0.8-4.8); LYMPHOCYTES % (AUTO) 24.1 % (20.0-44.0); MEAN CORPUSCULAR HEMOGLOBIN 29 PG (26.0-33.0); MEAN CORPUSCULAR HGB CONC 33 g/dl (31.0-36.0); MEAN CORPUSCULAR VOLUME 87 fL (82-100); MONOCYTES # (AUTO) 0.7 /CMM (0.1-1.30); MONOCYTES % (AUTO) 9.4 % (2.0-12.0); NEUTROPHILS # (AUTO) 4.9 /CMM (1.8-8.9); NEUTROPHILS % (AUTO) 64.3 % (43.0-81.0); PLATELET COUNT (AUTO) 184 /CMM (150-450); RED BLOOD CELL COUNT(AUTO) 5.48 MIL/uL (4.0-5.2); WHITE BLOOD COUNT (AUTO) 7.6 K/uL (4.3-11.0)
[2017-03-24 08:00] VITALS: BP 137/60
[2017-03-24 08:06] LABS: CALCIUM, SERUM 9.4 mg/dL (8.5-10.1); CARBON DIOXIDE 29 mmol/L (21-32); CHLORIDE 100 mmol/L (98-107); CREATININE 0.8 mg/dL (0.6-1.3); GLUCOSE 107 mg/dL (74-106); MAGNESIUM 2.1 mg/dL (1.8-2.4); PHOSPHORUS 3.2 mg/dL (2.5-4.9); SODIUM SERUM 139 mmol/L (136-145); UREA NITROGEN, BLOOD 7 mg/dL (7-18)
[2017-03-24] MEDS: PANTOPRAZOLE 40 MG VIAL IV SCH (08:07)
[2017-03-24 08:15] LABS: POTASSIUM 2.6 mmol/L (3.5-5.1)
--- NOTE | 2017-03-24 08:27 | NUR ---
RN NOTES NOTIFIED PHARMACY, SHANNA, ABOUT POTASSIUM BOLUS ORDERS PER SHANNA IT WILL BE DELIVERED TO THE FLOOR WILL CONTINUE TO MONITOR
[2017-03-24] MEDS ORDERED: POTASSIUM CL. PREMIX PERIPHER. 50 ML IV SCH (08:30)
[2017-03-24 08:50] LABS: CHOLESTEROL 270 mg/dL (<200); HDL CHOLESTEROL 56 mg/dL (40-60); LDL 176 mg/dL (0-99); TRIGLYCERIDES 193 mg/dL (30-150)
[2017-03-24] MEDS: Potassium Chloride 10 MEQ in IV D5W 50 ML IV SCH ×6 (09:40→18:21)
[2017-03-24] MEDS ORDERED: PROCHLORPERAZINE EDISYLATE 10 MG/2 ML VIAL IVP PRN (10:00)
[2017-03-24] MEDS: PROCHLORPERAZINE EDISYLATE 10 MG/2 ML VIAL IVP PRN (11:14)
[2017-03-24] MEDS: FENTANYL PF 100MCG/2ML AMPUL IV PRN ×2 (15:17→23:04)
[2017-03-24 16:00] VITALS: BP 131/73
[2017-03-24] MEDS: IV NS 0.9% 1,000 ML IV PRN (18:21)
--- NOTE | 2017-03-24 18:58 | NUR ---
RN NOTES PATIENT ASLEEP COMFORTABLY IN BED, EASILY AROUSABLE DURING CARE, ABLE TO MAKE NEEDS KNOWN. RESPIRATIONS EVEN AND UNLABORED, CONTINUED ON PAIN MANAGEMENT AT THIS TIME. IV ACCESS TO LFA PATENT AND INTACT NO REDNESS OR INFILTRATION NOTED.SAFETY MEASURES IN PLACE, WILL CONTINUE TO MONITOR AND ENDORSE TO NEXT SHIFT FOR CONTINUITY OF CARE
--- NOTE | 2017-03-24 19:44 | NUR ---
RN OPENING NOTES PT RESTING IN BED. NO APPARENT S/S OF PAIN OR DISTRESS. PT IS CURRENTLY NPO. NO COMPLAINTS OF SOB AT THIS TIME. PT HAS A LEFT FA #20 RUNNING NS @100ML/HR. PT TOLERATING FLUIDS WELL. SAFETY MEASURES IN PLACE. BED IN LOW, LOCKED POSITION, 2XSIDERAILS UP. CALL LIGHT WITHIN REACH. WILL CONTINUE TO MONITOR.
[2017-03-24 20:00] VITALS: BP 128/70
[2017-03-24] MEDS: CEFTRIAXONE 1 G in IV D5W 50 ML IV SCH (20:43)
--- NOTE | 2017-03-24 23:05 | NUR ---
PT REQUESTED PAIN MEDICATION FOR ABD PAIN 11/30. WILL ADMINISTER PRN FENTANYL 60 MCG. WILL CONTINUE TO MONITOR PT.
--- NOTE | 2017-03-25 00:05 | NUR ---
PT REQUESTED SLEEP MEDICATION. PT HAD PO ÓSCAR ORDERED. PT CURRENTLY NPO. CALLED DARLENE TO ADVISE. PER ORDERS ONE TIME 25MG BENADRYL IV FOR SLEEP AID. WILL ADMINISTER AND FOLLOW UP WITH PT.
[2017-03-25] MEDS ORDERED: diphenhydrAMINE HCL 50 MG/ML VIAL ONE (00:29)
[2017-03-25] MEDS ORDERED: diphenhydrAMINE HCL 50 MG/ML VIAL IV ONE (00:30)
--- NOTE | 2017-03-25 04:55 | NUR ---
PT REQUESTED ATIVAN FOR ANXIETY. WILL ADMINISTER PRN ATIVAN 0.5MG. WILL CONTINUE TO MONITOR.
[2017-03-25] MEDS: LORAZEPAM INJ 2 MG/ML VIAL IV PRN ×3 (04:58→13:24)
[2017-03-25] MEDS: IV NS 0.9% 1,000 ML IV PRN ×2 (06:13→18:54)
--- NOTE | 2017-03-25 06:46 | NUR ---
RN CLOSING NOTES PT RESTING IN BED. NO APPARENT S/S OF PAIN OR DISTRESS. PT IS CURRENTLY NPO. NO COMPLAINTS OF SOB. PT HAS A LEFT FA #20 RUNNING NS @100ML/HR. PT TOLERATING FLUIDS WELL. PT ABLE TO AMBULATE TO BATHROOM WITH MINIMAL ASSISTANCE. SAFETY MEASURES IN PLACE. BED IN LOW, LOCKED POSITION, 2XSIDERAILS UP. CALL LIGHT WITHIN REACH. ALL PT NEEDS MET. WILL ENDORSE TO DAY SHIFT NURSE FOR CONTINUITY OF CARE.
[2017-03-25 07:18] LABS: BASOPHILS % (AUTO) 0.5 % (0.0-2.0); EOSINOPHILS # (AUTO) 0.1 /CMM (0.0-0.7); EOSINOPHILS % (AUTO) 2.1 % (0.0-6.0); HEMATOCRIT 43 % (33-45); HEMOGLOBIN 14.1 g/dL (11.5-14.8); LYMPHOCYTES # (AUTO) 1.5 /CMM (0.8-4.8); LYMPHOCYTES % (AUTO) 22.8 % (20.0-44.0); MEAN CORPUSCULAR HEMOGLOBIN 29 PG (26.0-33.0); MEAN CORPUSCULAR HGB CONC 33 g/dl (31.0-36.0); MEAN CORPUSCULAR VOLUME 87 fL (82-100); MONOCYTES # (AUTO) 0.7 /CMM (0.1-1.30); MONOCYTES % (AUTO) 11.6 % (2.0-12.0); PLATELET COUNT (AUTO) 200 /CMM (150-450); RDW COEFFICIENT OF VARIATION 14.2 (11.5-15.0); RED BLOOD CELL COUNT(AUTO) 4.96 MIL/uL (4.0-5.2); WHITE BLOOD COUNT (AUTO) 6.4 K/uL (4.3-11.0)
[2017-03-25 07:33] LABS: CARBON DIOXIDE 29 mmol/L (21-32); CHLORIDE 105 mmol/L (98-107); CREATININE 0.6 mg/dL (0.6-1.3); GLUCOSE 94 mg/dL (74-106); SODIUM SERUM 142 mmol/L (136-145); UREA NITROGEN, BLOOD 5 mg/dL (7-18)
[2017-03-25 08:00] VITALS: BP 132/76
--- NOTE | 2017-03-25 08:00 | NUR ---
MS RN OPENING NOTES. PT A&0X3 RESTING SUPINE LOW SEMI FOWLERS. PT TOLERATING ROOM AIR WITH NO SOB. PT REPORTING NO PAIN. PT REPORTING ANXIETY AND REQUESTING MEDICATION, ATIVAN ADMINISTERED. PT WITH IVC AT L FA G#20 INTACT AND OPERATIONAL. PT BRIEFED ON TODAY'S POC. BED IN LOWEST LOCKED POSITION WITH HANDRAILSX3 AND CALL [place] WITHIN REACH. PT WITHOUT CONCERN OR COMPLAINT AT THIS TIME
[2017-03-25 08:03] LABS: POTASSIUM 2.8 mmol/L (3.5-5.1)
[2017-03-25] MEDS: PANTOPRAZOLE 40 MG VIAL IV SCH (09:04)
--- NOTE | 2017-03-25 09:45 | NUR ---
MS RN NOTES. PT RV BY MD NUNU REQUESTING NPO STATUS CHANGED TO NPO EXCEPT MEDS, ORDER PLACED. NOTIFIED RE TIGRE Dunn MD REQUESTING ORAL REPLACEMENT, ORDERS PLACED PHARMACY NOTIFIED.
[2017-03-25] MEDS: POTASSIUM CHLORIDE 20 MEQ POWDER PACKET NG SCH ×3 (10:51→11:50)
--- NOTE | 2017-03-25 11:51 | NUR ---
RN NOTES. PT REFUSED K REPLACEMENT POWDER RECON, INSTEAD PREFER TABLET. DOSE WASTED AND REQUESTED CHANGE WITH PHARMACY.
[2017-03-25] MEDS: POTASSIUM CHLORIDE 20 MEQ TAB.PRT.SR PO SCH ×2 (11:55→13:27)
[2017-03-25] MEDS ORDERED: POTASSIUM CHLORIDE 20 MEQ TAB.PRT.SR PO ONE (12:00)
--- NOTE | 2017-03-25 13:52 | NUR ---
RN NOTES. PT REFUSED ALL RECON. K. TWO DOSES NON ADMIN. REMAINING TWO DOSES 20MEQ PRESCRIBED K REPLACEMENT ADMINISTERED IN TABLET FORM.
[2017-03-25 16:00] VITALS: BP 129/81
--- NOTE | 2017-03-25 18:45 | NUR ---
MS RN NOTES. PT WITH CONTACT PRECAUTIONS R/T: ESBL OF URINE. MD NOTIFIED AND REQUESTING CURRENT IV AB THERAPY CEASED AND MERREM 1G IV Q12, ORDERS PLACED.
--- NOTE | 2017-03-25 18:47 | NUR ---
MS RN CLOSING NOTES. CONTACT PRECAUTIONS R/T: ESBL OF URINE. PT A&0X3 RESTING IN BED. PT NPO. PT TOLERATING ROOM AIR WITH NO SOB. PT REPORTING NO PAIN BUT SOME ANXIETY, PT DECLINED PRN ANXIETY MEDS. PT WITH L FOREARM G#20 INTACT AND OPERATIONAL. ALL DAY SHIFT DUTIES ATTENDED TO, PT WITHOUT CONCERN OR COMPLAINT AT THIS TIME. WILL ENDORSE TO NIGHT NURSE.
[2017-03-25] MEDS: MEROPENEM 1 G in IV NS 0.9% 100 ML IV SCH (18:54)
--- NOTE | 2017-03-25 19:05 | NUR ---
RN OPENING NOTES PT RESTING IN BED. NO APPARENT S/S OF PAIN OR DISTRESS. PT IS NPO. NO COMPLAINTS OF SOB. PT HAS A LEFT FA #20 RUNNING NS @100ML/HR. PT TOLERATING FLUIDS WELL. PT ABLE TO AMBULATE TO BATHROOM WITH MINIMAL ASSISTANCE. SAFETY MEASURES IN PLACE. BED IN LOW, LOCKED POSITION, 2XSIDERAILS UP. CALL LIGHT WITHIN REACH. WILL CONTINUE TO MONITOR.
[2017-03-25 20:00] VITALS: BP 137/67
--- NOTE | 2017-03-25 23:25 | NUR ---
PT REQUESTED SLEEP MEDICATION. WILL ADMINISTER PRN AMBIEN 5MG. WILL CONTINUE TO MONITOR.
[2017-03-25] MEDS: ZOLPIDEM TARTRATE 5 MG TABLET PO PRN (23:26)
--- NOTE | 2017-03-26 04:15 | NUR ---
PT REQUESTED PAIN MEDICATION FOR PAIN LEVEL OF 10/10. WILL ADMINISTER PRN FENTANYL 60MCG. WILL CONTINUE TO MONITOR.
[2017-03-26] MEDS: FENTANYL PF 100MCG/2ML AMPUL IV PRN ×2 (04:17→22:17)
[2017-03-26 05:00] VITALS: BP 132/73
[2017-03-26] MEDS: MEROPENEM 1 G in IV NS 0.9% 100 ML IV SCH ×2 (06:11→17:48)
[2017-03-26] MEDS: LORAZEPAM INJ 2 MG/ML VIAL IV PRN ×2 (06:12→15:33)
[2017-03-26] MEDS: IV NS 0.9% 1,000 ML IV PRN ×2 (06:13→22:05)
[2017-03-26 06:41] LABS: ALANINE AMINOTRANSFERASE 28 U/L (12-78); ALBUMIN 2.9 g/dL (3.4-5.0); ALKALINE PHOSPHATASE 69 U/L (46-116); ASPARTATE AMINOTRANSFERASE 21 U/L (15-37); BILIRUBIN,TOTAL 0.8 mg/dL (0.2-1.0); CALCIUM, SERUM 9.3 mg/dL (8.5-10.1); CARBON DIOXIDE 30 mmol/L (21-32); CHLORIDE 109 mmol/L (98-107); CREATININE 0.6 mg/dL (0.6-1.3); GLUCOSE 79 mg/dL (74-106); LIPASE 236 U/L (73-393); POTASSIUM 3.3 mmol/L (3.5-5.1); SODIUM SERUM 144 mmol/L (136-145); TOTAL PROTEIN, SERUM 6.2 g/dL (6.4-8.2); UREA NITROGEN, BLOOD 5 mg/dL (7-18)
[2017-03-26 06:42] LABS: BASOPHILS % (AUTO) 0.5 % (0.0-2.0); EOSINOPHILS # (AUTO) 0.1 /CMM (0.0-0.7); EOSINOPHILS % (AUTO) 1.1 % (0.0-6.0); HEMATOCRIT 44 % (33-45); HEMOGLOBIN 14.5 g/dL (11.5-14.8); LYMPHOCYTES # (AUTO) 1.5 /CMM (0.8-4.8); LYMPHOCYTES % (AUTO) 17.9 % (20.0-44.0); MEAN CORPUSCULAR HEMOGLOBIN 28 PG (26.0-33.0); MEAN CORPUSCULAR HGB CONC 33 g/dl (31.0-36.0); MEAN CORPUSCULAR VOLUME 86 fL (82-100); MONOCYTES # (AUTO) 0.7 /CMM (0.1-1.30); MONOCYTES % (AUTO) 8.2 % (2.0-12.0); NEUTROPHILS # (AUTO) 6.2 /CMM (1.8-8.9); NEUTROPHILS % (AUTO) 72.3 % (43.0-81.0); PLATELET COUNT (AUTO) 185 /CMM (150-450); RDW COEFFICIENT OF VARIATION 14.4 (11.5-15.0); RED BLOOD CELL COUNT(AUTO) 5.12 MIL/uL (4.0-5.2); WHITE BLOOD COUNT (AUTO) 8.5 K/uL (4.3-11.0)
--- NOTE | 2017-03-26 07:42 | NUR ---
RN OPENING NOTES PT RESTING IN BED. NO APPARENT S/S OF PAIN OR DISTRESS. PT IS NPO. NO COMPLAINTS OF SOB. PT HAS A RIGHT FA #20 RUNNING NS @100ML/HR. PT TOLERATING FLUIDS WELL. PT ABLE TO AMBULATE TO BATHROOM WITH MINIMAL ASSISTANCE. SAFETY MEASURES IN PLACE. BED IN LOW, LOCKED POSITION, 2XSIDERAILS UP. CALL LIGHT WITHIN REACH. WILL ENDORSE TO DAY SHIFT FOR YUMIKO.
--- NOTE | 2017-03-26 07:58 | NUR ---
MS RN NOTES RECEIVED PATIENT IN BED, AWAKE. A/O X4. APPEARS COMFORTABLE IN BED. IV IN RFA G20 PATENT AND INTACT, IV NS INFUSING AT 100ML/HR. DENIES ANY DISCOMFORT, PATIENT IS ON NPO EXCEPT MEDS ORDERED. CALL LIGHT WITHIN REACH. WILL CONT TO MONITOR.
[2017-03-26 08:00] VITALS: BP 138/74
[2017-03-26] MEDS: PANTOPRAZOLE 40 MG VIAL IV SCH (08:30)
[2017-03-26] MEDS ORDERED: POTASSIUM CHLORIDE 10 MEQ TABLET.SA PO ONE (09:30)
--- NOTE | 2017-03-26 11:42 | NUR ---
PATIENT HAS NO EPISODE OF VOMITING, NO C/O NAUSEA, TOLERATED CLEAR LIQUIDS. ADVANCED DIET TO FULL LIQUIDS ORDERED, WILL CONT TO MONITOR.
--- NOTE | 2017-03-26 14:10 | NUR ---
PATIENT HAS EPISODE OF LOOSE STOOL/DIARRHEA X1, BROWN AND SMALL AMT. CURRENTLY ON ANTIBIOTIC IV FOR ESBL URINE, AND WAS ADMITTED ON FOR PANCREATITIS. WILL CONT TO MONITOR. PLACE CALL LIGHT WITHIN REACH.
--- NOTE | 2017-03-26 15:35 | NUR ---
PATIENT IN BED, APPEARS ANXIOUS, DENIES CHEST PAIN. NO SOB. SATING 98% IN RA. ATIVAN 0.5MG IV PRN GIVEN, WILL REASSESS.
[2017-03-26 16:00] VITALS: BP 129/68
--- NOTE | 2017-03-26 16:35 | NUR ---
PATIENT IN BED, APPEARS CALMED AND RELAX, ATIVAN IV PRN EFFECTIVE.
--- NOTE | 2017-03-26 18:25 | NUR ---
MS RN CLOSING NOTES PATIENT IN BED, A/O X4. ON FULL LIQUIDS DIET, TOLERATING WELL, NO EPISODE OF VOMITING AND NAUSEA DURING THE SHIFT. IV IN RFA G20 PATENT AND INTACT, IV NS INFUSING AT 100ML/HR. POTASSIUM CHLORIDE SUPPLEMENTED TODAY. PATIENT WITH ONLY ONE EPISODE OF DIARRHEA DURING THE SHIFT, INSTRUCTED TO CALL NURSE FOR NEXT EPISODE, PATIENT VERBALIZED UNDERSTANDING. ON CONTACT ISOLATION ESBL URINE, CONTACT ISOLATION OBSERVED. WILL ENDORSE TO PITTING MACHINE OPERATOR RN FOR YUMIKO.
--- NOTE | 2017-03-26 19:45 | NUR ---
RN OPENING NOTES RECEIVED REPORT FROM DAYSHIFT RN. FOUND Pt AWAKE, RESTING IN BED,WATCHING TV. RESPIRATIONS EVEN AND UNLABORED. EQUAL CHEST RISE AND FALL. NO S/S OF ACUTE DISTRESS OR SOB NOTED. Pt IS A/OX4, VERBAL, ABLE TO MAKE NEEDS KNOWN. IV ACCESS ON RFA #20G, IVF NS @100ML/HR. SAFETY MEASURES IN PLACE. BED LOW, LOCKED, HOB ELEVATED, SIDE RAILS UP, CALL LIGHT AND BEDSIDE TABLE WITHIN REACH. WILL CONTINUE TO MONITOR Pt THROUGHOUT THE NIGHT FOR SAFETY.
[2017-03-26 20:00] VITALS: BP 129/72
[2017-03-26 22:02] VITALS: BP 129/72
[2017-03-26] MEDS: ZOLPIDEM TARTRATE 5 MG TABLET PO PRN (22:06)
--- NOTE | 2017-03-27 04:00 | NUR ---
RN NOTES STOOL SAMPLE COLLECTED. PLACED IN SPECIMEN FRIDGE.
--- NOTE | 2017-03-27 05:15 | NUR ---
RN NOTES ADMINISTERED 0.5MG OF ATIVAN PER PRN ORDER. WITHDREW 0.5MG FROM 20MG ATIVAN VIAL IN . NONE WASTED.
[2017-03-27] MEDS: LORAZEPAM INJ 2 MG/ML VIAL IV PRN ×3 (05:21→16:23)
[2017-03-27] MEDS: MEROPENEM 1 G in IV NS 0.9% 100 ML IV SCH ×2 (05:31→19:22)
--- NOTE | 2017-03-27 06:49 | NUR ---
RN CLOSING NOTES NO SIGNIFICANT CHANGES IN Pt's CONDITION. Pt REMAINS STABLE AT THIS TIME. ALL NEEDS MET AND ATTENDED TO. SAFETY MEASURES IN PLACE. WILL ENDORSE TO DAYSHIFT RN FOR Pt's YUMIKO.
[2017-03-27 07:11] LABS: BASOPHILS % (AUTO) 0.7 % (0.0-2.0); EOSINOPHILS # (AUTO) 0.1 /CMM (0.0-0.7); EOSINOPHILS % (AUTO) 1.8 % (0.0-6.0); HEMATOCRIT 45 % (33-45); HEMOGLOBIN 14.8 g/dL (11.5-14.8); LYMPHOCYTES # (AUTO) 1.6 /CMM (0.8-4.8); LYMPHOCYTES % (AUTO) 26.8 % (20.0-44.0); MEAN CORPUSCULAR HEMOGLOBIN 28 PG (26.0-33.0); MEAN CORPUSCULAR HGB CONC 33 g/dl (31.0-36.0); MEAN CORPUSCULAR VOLUME 87 fL (82-100); MONOCYTES # (AUTO) 0.6 /CMM (0.1-1.30); MONOCYTES % (AUTO) 10.6 % (2.0-12.0); NEUTROPHILS # (AUTO) 3.6 /CMM (1.8-8.9); NEUTROPHILS % (AUTO) 60.1 % (43.0-81.0); PLATELET COUNT (AUTO) 216 /CMM (150-450); RDW COEFFICIENT OF VARIATION 14.7 (11.5-15.0)
[2017-03-27 07:14] LABS: CARBON DIOXIDE 28 mmol/L (21-32); CHLORIDE 105 mmol/L (98-107); CREATININE 0.8 mg/dL (0.6-1.3); GLUCOSE 98 mg/dL (74-106); POTASSIUM 3.4 mmol/L (3.5-5.1); SODIUM SERUM 140 mmol/L (136-145); UREA NITROGEN, BLOOD 2 mg/dL (7-18)
--- NOTE | 2017-03-27 07:53 | NUR ---
MS RN OPENING NOTES PT RECEIVED A&0X3 , RESTING IN LOW SEMI FOWLERS. PT TOLERATING ROOM AIR WITH NO SOB. PT REPORTING NO PAIN BUT SOME GENERALIZED ANXIETY. PT REPORTING MULTIPLE LOOSE BOWEL MOVEMENTS THIS MORNING. PT WITH IVC G#20 AT R FOREARM INTACT AND OPERATIONAL. BED IN LOWEST LOCKED POSITION WITH HANDRAILSX2 AND CALL [place] WITHIN REACH. PT BRIEFED ON TODAY'S POC. PT WITHOUT CONCERN OR COMPLAINT AT THIS TIME.
[2017-03-27 08:00] VITALS: BP 150/84
[2017-03-27] MEDS: PANTOPRAZOLE 40 MG VIAL IV SCH (08:14)
[2017-03-27] MEDS: PROCHLORPERAZINE EDISYLATE 10 MG/2 ML VIAL IVP PRN ×2 (08:24→13:58)
--- NOTE | 2017-03-27 08:28 | NUR ---
MS RN NOTES. PT REPORTING ANXIETY AND NAUSEA, PRN COMPAZINE ADMINISTERED. WILL CONTINUE TO MONITOR
--- NOTE | 2017-03-27 08:57 | NUR ---
TEXTED DR. [facility]
[2017-03-27] MEDS ORDERED: POTASSIUM CHLORIDE 20 MEQ POWDER PACKET PO SCH (11:00)
--- NOTE | 2017-03-27 11:38 | NUR ---
MS RN NOTES. PT ENDORSED TO [facility] FOR TRANSPORT VIA WHEELCHAIR FOR MRCP. PT EDUCATED AND CONSENT SIGNED.
[2017-03-27] MEDS ORDERED: POTASSIUM CHLORIDE 20 MEQ TAB.PRT.SR PO SCH (12:00)
[2017-03-27] MEDS: IV NS 0.9% 1,000 ML IV PRN (13:58)
[2017-03-27 16:00] VITALS: BP 152/75
--- NOTE | 2017-03-27 18:38 | NUR ---
MS RN CLOSING NOTES. PT A&0X3 RESTING IN BED. PT TOLERATING ROOM AIR WITH SOB. REPORTING NO PAIN AT THIS TIME. PT ANXIETY CURRENTLY TOLERABLE. PT TOLERATING DIET BETTER THIS PM, CONSUMING 100% OF MEAL TRAY WITHOUT N&V. PT IVC REPLACED AND AT LEFT FA G#22 AND IS INTACT AND OPERATIONAL. LAST EPISODE OF LOOSE STOOL AT 1800, PT REPORTING X5 MINOR LOOSE MOVEMENTS TODAY. PT BED IN LOWEST LOCKED POSITION WITH HANDRAILSX3 AND CALL [place] WITHIN REACH. ALL DAY NURSE DUTIES ATTENDED TO. PT WITHOUT CONCERN OR COMPLAINT AT THIS TIME. WILL ENDORSE TO NIGHT NURSE.
--- NOTE | 2017-03-27 19:45 | NUR ---
MS RN NOTES RECEIVED ON BED A/O X4,NO SOB,ISOLATION PRECAUTION FOR ESBL URINE.PRESENT IVF NS AT 100ML/HR RATE ,SITE PATENT VIA LFA.DENIES ABDOMINAL PAIN AT THE MOEMNT.CALL LIGHT IN REACH,NEEDS ANTICIPATED.
--- NOTE | 2017-03-27 19:51 | NUR ---
MS RN NOTES. DR VU INFORMED REGARDING PT REPORTED DIARRHEA. PT REPORTING X5 SMALL, NON FOUL SMELLING LOOSE STOOL. MD REQUESTING PRN IMODIUM AND C.DIFF STOOL CULTURE, ORDERS PLACED. ENDORSED TO NIGHT NURSE.
[2017-03-27 20:00] VITALS: BP 149/84
[2017-03-27] MEDS ORDERED: LOPERAMIDE HCL (2 MG CAP) 2 MG CAPSULE PO PRN (20:00)
[2017-03-27] MEDS: FENTANYL PF 100MCG/2ML AMPUL IV PRN (20:31)
--- NOTE | 2017-03-27 20:31 | NUR ---
MS RN NOTES PAIN MANAGEMENT C/O ABDOMINAL PAIN 9/10 ON PAIN SCALE,BP 149/84,MEDICATED WITH FENTANYL 60MCG(1.2ML) IV ORDERED.WILL MONITOR FOR RELIEF.
--- NOTE | 2017-03-27 21:00 | NUR ---
MS RN NOTES PAIN SCALE GOES DOWN TO 5/10.FALLING ASLEEP THIS TIME.
[2017-03-27] MEDS: ZOLPIDEM TARTRATE 5 MG TABLET PO PRN (23:37)
--- NOTE | 2017-03-27 23:37 | NUR ---
MS RN NOTES C/O INSOMNIA,MEDICATED WITH AMBIEN 5MG PO ORDERED
[2017-03-28] MEDS: IV NS 0.9% 1,000 ML IV PRN ×2 (03:37→15:54)
[2017-03-28] MEDS: LORAZEPAM INJ 2 MG/ML VIAL IV PRN ×2 (05:15→09:36)
--- NOTE | 2017-03-28 05:15 | NUR ---
MS RN NOTES C/O ANXIETY,MEDICATED WITH ATIVAN 0.5MG IV PER PATIENT REQUEST.
[2017-03-28] MEDS: MEROPENEM 1 G in IV NS 0.9% 100 ML IV SCH (05:19)
--- NOTE | 2017-03-28 06:48 | NUR ---
MS RN NOTES CALM AND QUIET IN HER ROOM.NO ACTUAL LOOSE BM NOTED.IVF INFUSING,IN NO ACUTE DISTRESS.CALL LIIGHT IN REACH,NEEDS ATTENDED.WILL ENDORSE TO DAY NURSE FOR YUMIKO.
--- NOTE | 2017-03-28 07:41 | NUR ---
MS RN: INITIAL NOTE RECEIVED PT A/OX4. MS. CONTINENT. USES BSC. AMBULATORY WITH ASSIST. SKIN INTACT. ON FULL LIQUID DIET. NS AT 100ML/HR ON L FA #22. SITE CLEAR AND PATENT. NO REDNESS OR BLEEDING NOTED. NO DISTRESS NOTED. NO SOB NOTED. NO PAIN NOTED. ON ROOM AIR SATING AT 98%. ON CONTACT ISOLATION FOR ESBL URINE. RESTING COMFORTABLY IN BED. CALL LIGHT WITHIN REACH.
[2017-03-28 08:00] VITALS: BP 144/54
[2017-03-28] MEDS: PANTOPRAZOLE 40 MG VIAL IV SCH (08:39)
[2017-03-28] MEDS ORDERED: ONDANSETRON HCL/PF 4 MG/2 ML VIAL IV PRN (09:30)
[2017-03-28 11:33] LABS: BASOPHILS % (AUTO) 0.5 % (0.0-2.0); EOSINOPHILS % (AUTO) 0.7 % (0.0-6.0); HEMATOCRIT 45 % (33-45); HEMOGLOBIN 14.6 g/dL (11.5-14.8); LYMPHOCYTES # (AUTO) 1.7 /CMM (0.8-4.8); LYMPHOCYTES % (AUTO) 22.6 % (20.0-44.0); MEAN CORPUSCULAR HEMOGLOBIN 28 PG (26.0-33.0); MEAN CORPUSCULAR HGB CONC 33 g/dl (31.0-36.0); MEAN CORPUSCULAR VOLUME 87 fL (82-100); MONOCYTES # (AUTO) 0.7 /CMM (0.1-1.30); MONOCYTES % (AUTO) 9.7 % (2.0-12.0); NEUTROPHILS # (AUTO) 4.9 /CMM (1.8-8.9); NEUTROPHILS % (AUTO) 66.5 % (43.0-81.0); PLATELET COUNT (AUTO) 207 /CMM (150-450); RED BLOOD CELL COUNT(AUTO) 5.16 MIL/uL (4.0-5.2); WHITE BLOOD COUNT (AUTO) 7.4 K/uL (4.3-11.0)
[2017-03-28 12:53] LABS: ALANINE AMINOTRANSFERASE 19 U/L (12-78); ALBUMIN 3.1 g/dL (3.4-5.0); ALKALINE PHOSPHATASE 82 U/L (46-116); ASPARTATE AMINOTRANSFERASE 19 U/L (15-37); BILIRUBIN,TOTAL 0.8 mg/dL (0.2-1.0); CALCIUM, SERUM 9.1 mg/dL (8.5-10.1); CARBON DIOXIDE 26 mmol/L (21-32); CHLORIDE 107 mmol/L (98-107); CREATININE 0.6 mg/dL (0.6-1.3); GLUCOSE 131 mg/dL (74-106); LIPASE 254 U/L (73-393); SODIUM SERUM 143 mmol/L (136-145); TOTAL PROTEIN, SERUM 6.7 g/dL (6.4-8.2); UREA NITROGEN, BLOOD 1 mg/dL (7-18)
[2017-03-28 13:47] LABS: POTASSIUM 2.6 mmol/L (3.5-5.1)
[2017-03-28] MEDS ORDERED: POTASSIUM CHLORIDE 20 MEQ TAB.PRT.SR PO ONE (14:00)
[2017-03-28 16:00] VITALS: BP 143/77
--- NOTE | 2017-03-28 18:44 | NUR ---
MS RN: CLOSING NOTE PT TOOK ALL MEDICATIONS ON TIME. NO ADVERSE REACTIONS NOTED. NO PAIN NOTED. NO SOB NOTED. NO DISTRESS NOTED. A/OX4. MS. CONTINENT WITH BSC. AMBULATORY WITH ASSIST. SKIN INTACT. ON FULL LIQUID DIET. TO ADVANCE TOLERATED. NS AT R FA #22. AT 100ML/HR. SITE CLEAR AND PATENT. ON CONTACT ISOLATION FOR ESBL URINE. RESTING COMFORTABLY IN BED. CALL LIGHT WITHIN REACH.
[2017-03-28 20:00] VITALS: BP_SYST 142; BP_DIAS 54; BP_DIAS 84
--- NOTE | 2017-03-28 20:00 | NUR ---
MS NADINE INITIAL NOTES SEEN PT IN BED SITTING WITH IVF OF NS AT 100ML/HR . AWARE WHERE SHE AT AND HOW TO USED THE CALL LIGHT SYSTEM. NO SIGNS OF ANY ACUTE DISCOMFORT NOTED AT THIS TIME. KEPT HER WARM AND COMFORTABLE AT ALL TIMES. WILL CONTINUE TO MONITOR. ISOLATION PRECAUTION IMPLEMENTED AND OBSERVED. PLACE CALL LIGHT AT REACH.
[2017-03-28] MEDS: FENTANYL PF 100MCG/2ML AMPUL IV PRN (20:40)
[2017-03-29] MEDS: ZOLPIDEM TARTRATE 5 MG TABLET PO PRN (00:07)
[2017-03-29] MEDS ORDERED: LORAZEPAM 0.5 MG TABLET ONE (05:15)
[2017-03-29] MEDS ORDERED: LORAZEPAM 0.5 MG TABLET PO PRN (05:30)
--- NOTE | 2017-03-29 07:20 | NUR ---
MS GYRO COMPASS TESTER CLOSING NOTES PT RESTING AFTER ATIVAN GIVEN. BREATHING EVEN AND NON-LABORED, NOT IN ANY ACUTE DISTRESS NOTED. SLEPT WELL AFTER SLEEP MEDS GIVEN. ALL DUE MEDS GIVEN AND ALL NEEDS MET. ON SEMI FOWLERS POSITION WITH SIDE RAILS UP AND PLACE CALL LIGHT AT REACH. ENDORSE TO AM NURSE.
--- NOTE | 2017-03-29 07:39 | NUR ---
MS RN: INITIAL NOTE RECEIVED PT A/OX4. MS. BSC. AMBULATORY WITH AND WITHOUT ASSIST. NO DISTRESS NOTED. NO PAIN NOTED. NO SOB NOTED. SKIN INTACT. ON FULL LIQUID DIET. IV ON RFA RUNNING NS AT 100ML/HR. SITE CLEAR AND PATENT. RESTING COMFORTABLY IN BED. CALL LIGHT WITHIN REACH. ON CONTACT ISOLATION FOR ESBL URINE.
[2017-03-29] MEDS: IV NS 0.9% 1,000 ML IV PRN (07:57)
[2017-03-29 08:00] VITALS: BP 145/74
[2017-03-29] MEDS: PANTOPRAZOLE 40 MG VIAL IV SCH (08:00)
[2017-03-29 08:11] LABS: BASOPHILS % (AUTO) 0.5 % (0.0-2.0); EOSINOPHILS # (AUTO) 0.1 /CMM (0.0-0.7); EOSINOPHILS % (AUTO) 1.3 % (0.0-6.0); HEMATOCRIT 46 % (33-45); HEMOGLOBIN 15.1 g/dL (11.5-14.8); LYMPHOCYTES # (AUTO) 1.8 /CMM (0.8-4.8); LYMPHOCYTES % (AUTO) 25.3 % (20.0-44.0); MEAN CORPUSCULAR HEMOGLOBIN 29 PG (26.0-33.0); MEAN CORPUSCULAR HGB CONC 33 g/dl (31.0-36.0); MEAN CORPUSCULAR VOLUME 87 fL (82-100); MONOCYTES # (AUTO) 0.7 /CMM (0.1-1.30); MONOCYTES % (AUTO) 9.6 % (2.0-12.0); NEUTROPHILS # (AUTO) 4.4 /CMM (1.8-8.9); NEUTROPHILS % (AUTO) 63.3 % (43.0-81.0); PLATELET COUNT (AUTO) 223 /CMM (150-450); RDW COEFFICIENT OF VARIATION 14.2 (11.5-15.0); RED BLOOD CELL COUNT(AUTO) 5.25 MIL/uL (4.0-5.2); WHITE BLOOD COUNT (AUTO) 6.9 K/uL (4.3-11.0)
[2017-03-29 08:22] LABS: CALCIUM, SERUM 9.4 mg/dL (8.5-10.1); CARBON DIOXIDE 27 mmol/L (21-32); CHLORIDE 107 mmol/L (98-107); CREATININE 0.7 mg/dL (0.6-1.3); GLUCOSE 108 mg/dL (74-106); LIPASE 234 U/L (73-393); POTASSIUM 3.1 mmol/L (3.5-5.1); SODIUM SERUM 143 mmol/L (136-145); UREA NITROGEN, BLOOD 1 mg/dL (7-18)
--- NOTE | 2017-03-29 11:21 | NUR ---
MS RN: DISCHARGE NOTE PT DISCHARGED HOME WITH SELF CARE AND CAREGIVER. TOOK ALL MEDICATIONS ON TIME. NO ADVERSE REACTIONS NOTED. NO PAIN NOTED. A/OX4. NO SOB NOTED. IV ON R FA #22 REMOVED. SITE CLEAR. NO REDNESS NOTED. NO BLEEDING NOTED. ALL DISCHARGE INFORMATION SIGNED AND COPIES PROVIDED TO PT. ALL VALUABLES ACCOUNTED FOR. NEW PRESCRIPTIONS GIVEN. LEFT FACILITY VIA PRIVATE CARE WITH CAREGIVER ISRAEL.
[2017-03-29] MEDS ORDERED: POTASSIUM CHLORIDE 20 MEQ TAB.PRT.SR PO SCH (11:30)
== END 2017-03-29 11:30 | disposition home or self-care (01) | DRG 439 ==
LOC: ER 15:16 → MED 20:30
PROVIDERS: ADMIT Internal Medicine; ATTEND Internal Medicine
DX: K85.90 Acute pancreatitis without necrosis or infection, unspecified (principal); N39.0 Urinary tract infection, site not specified; K83.8 Other specified diseases of biliary tract; F03.90 Unspecified dementia, unspecified severity, without behavioral disturbance, psychotic disturbance, mood disturbance, and anxiety; E78.5 Hyperlipidemia, unspecified; F32.9 Major depressive disorder, single episode, unspecified; I10 Essential (primary) hypertension; F41.9 Anxiety disorder, unspecified; I70.0 Atherosclerosis of aorta; Z79.899 Other long term (current) drug therapy; E87.6 Hypokalemia; K52.9 Noninfective gastroenteritis and colitis, unspecified
CPT/HCPCS: 36415; 71010-TC; 74181-TC; 76705-TC; 80048-TC; 80053-TC; 80061-TC; 80076-TC; 81000-TC; 83605-TC; 83690-TC; 83735-TC; 84100-TC; 84484-TC; 85025-TC; 87040-TC; 87045-TC; 87081-TC; 87086-TC; 87186-TC; A4606; C9113; J0696; J0780; J1200; J2060; J2185; J2405; J2765; J3010; J3480; J7030; J7040; J7050; J7060; Q9967; Z7610

== ENCOUNTER 2017-07-17 10:36 | Emergency (ER) | payer MEDICARE, BC ==
[~2017-07-17] VITALS: Ht 162.6 cm; Wt 56.7 kg
[~2017-07-17 10:36] MED LIST changes: -AMIT25TA9 PO; +CHOL4PAC2 PO; +ESCI10TA PO; -FLUO40CA8 PO; -HYDR12.5 PO; +HYDR25TA4 PO; +LORA1TAB PO; +METO-295 PO; +OLAN15TA3 PO
--- NOTE | 2017-07-17 10:40 | NUR ---
PT PLACED ON NON-REBREATHER.
--- NOTE | 2017-07-17 10:48 | NUR ---
code stroke called
[2017-07-17] MEDS ORDERED: IV NS 0.9% 1,000 ML BAG IV ONE ×2 (11:00→12:00)
[2017-07-17] MEDS ORDERED: KETOROLAC TROMETHAMINE 15 MG/ML VIAL ONE (11:36)
[2017-07-17] MEDS ORDERED: ONDANSETRON HCL/PF 4 MG/2 ML VIAL ONE (11:36)
[2017-07-17 11:46] LABS: BASOPHILS # (AUTO) 0.1 /CMM (0.0-0.2); BASOPHILS % (AUTO) 1.1 % (0.0-2.0); EOSINOPHILS % (AUTO) 0.9 % (0.0-6.0); HEMATOCRIT 49 % (33-45); HEMOGLOBIN 16.4 g/dL (11.5-14.8); LYMPHOCYTES # (AUTO) 1.8 /CMM (0.8-4.8); LYMPHOCYTES % (AUTO) 22.3 % (20.0-44.0); MEAN CORPUSCULAR HGB CONC 33 g/dl (31.0-36.0); MEAN CORPUSCULAR VOLUME 85 fL (82-100); MONOCYTES # (AUTO) 0.7 /CMM (0.1-1.30); MONOCYTES % (AUTO) 8.9 % (2.0-12.0); NEUTROPHILS # (AUTO) 5.2 /CMM (1.8-8.9); NEUTROPHILS % (AUTO) 66.8 % (43.0-81.0); PLATELET COUNT (AUTO) 272 /CMM (150-450); RDW COEFFICIENT OF VARIATION 14.1 (11.5-15.0); RED BLOOD CELL COUNT(AUTO) 5.78 MIL/uL (4.0-5.2); WHITE BLOOD COUNT (AUTO) 7.9 K/uL (4.3-11.0)
[2017-07-17 12:00] LABS: INR 0.94 (0.85-1.15)
[2017-07-17] MEDS ORDERED: ONDANSETRON HCL/PF 4 MG/2 ML VIAL IVP ONE (12:00)
[2017-07-17] MEDS ORDERED: KETOROLAC TROMETHAMINE INJ 30 MG/ML VIAL IV ONE (12:00)
[2017-07-17 12:08] LABS: TROPONIN I < 0.017 ng/mL (0.00-0.056)
[2017-07-17 12:11] LABS: CALCIUM, SERUM 9.7 mg/dL (8.5-10.1); CARBON DIOXIDE 29 mmol/L (21-32); CHLORIDE 103 mmol/L (98-107); CREATININE 0.8 mg/dL (0.6-1.3); GLUCOSE 97 mg/dL (74-106); POTASSIUM 3.3 mmol/L (3.5-5.1); SODIUM SERUM 141 mmol/L (136-145); UREA NITROGEN, BLOOD 14 mg/dL (7-18)
[2017-07-17 12:17] LABS: ALANINE AMINOTRANSFERASE 30 U/L (12-78); ALBUMIN 3.5 g/dL (3.4-5.0); ALKALINE PHOSPHATASE 71 U/L (46-116); ASPARTATE AMINOTRANSFERASE 22 U/L (15-37); BILIRUBIN,DIRECT 0.2 mg/dL (0.0-0.2); BILIRUBIN,TOTAL 0.8 mg/dL (0.2-1.0); LIPASE 124 U/L (73-393); TOTAL PROTEIN, SERUM 7.5 g/dL (6.4-8.2)
[2017-07-17] MEDS ORDERED: METOCLOPRAMIDE HCL 10 MG/2 ML VIAL IV STA (13:09)
[2017-07-17] MEDS ORDERED: METOCLOPRAMIDE HCL 10 MG/2 ML VIAL ONE (13:11)
[2017-07-17] MEDS ORDERED: diphenhydrAMINE HCL 50 MG/ML VIAL ONE (13:21)
[2017-07-17] MEDS ORDERED: diphenhydrAMINE HCL 50 MG/ML VIAL IV ONE (13:30)
[2017-07-17 14:06] VITALS: BP 153/87
== END 2017-07-17 14:18 | disposition home or self-care (01) ==
LOC: ER 10:37
DX: R11.2 Nausea with vomiting, unspecified (principal); R10.13 Epigastric pain; I10 Essential (primary) hypertension; F41.9 Anxiety disorder, unspecified; F32.9 Major depressive disorder, single episode, unspecified
CPT/HCPCS: 36415; 76705-TC; 80048-TC; 80076-TC; 83690-TC; 84484-TC; 85025-TC; 85730-TC; A4606; J1200; J1885; J2405; J2765; J7030; Z7610

== ENCOUNTER 2017-07-19 08:02 | Inpatient (IN) | payer MEDICARE, BC ==
[~2017-07-19] VITALS: Ht 162.6 cm; Wt 55.8 kg
--- NOTE | 2017-07-19 08:02 | NUR ---
NAUSEA AND DIARRHEA SINCE SHE WAS SEEN 2 DAYS AGO FOR SAME SX UNABLE TO EAT/ DRINK
[2017-07-19] MEDS ORDERED: METOCLOPRAMIDE HCL 10 MG/2 ML VIAL ONE (08:43)
[2017-07-19] MEDS ORDERED: diphenhydrAMINE HCL 50 MG/ML VIAL ONE (08:43)
[2017-07-19] MEDS ORDERED: FAMOTIDINE/PF INJ 20 MG/2 ML VIAL IV ONE ×2 (08:44→09:00)
[2017-07-19 08:49] LABS: BASOPHILS % (AUTO) 0.5 % (0.0-2.0); EOSINOPHILS % (AUTO) 0.3 % (0.0-6.0); HEMATOCRIT 47 % (33-45); HEMOGLOBIN 15.9 g/dL (11.5-14.8); LYMPHOCYTES # (AUTO) 1.3 /CMM (0.8-4.8); LYMPHOCYTES % (AUTO) 17.9 % (20.0-44.0); MEAN CORPUSCULAR HGB CONC 34 g/dl (31.0-36.0); MEAN CORPUSCULAR VOLUME 85 fL (82-100); MONOCYTES # (AUTO) 0.5 /CMM (0.1-1.30); MONOCYTES % (AUTO) 7.3 % (2.0-12.0); NEUTROPHILS # (AUTO) 5.5 /CMM (1.8-8.9); PLATELET COUNT (AUTO) 245 /CMM (150-450); RED BLOOD CELL COUNT(AUTO) 5.47 MIL/uL (4.0-5.2); WHITE BLOOD COUNT (AUTO) 7.3 K/uL (4.3-11.0)
[2017-07-19] MEDS ORDERED: POTA20TA83 PO (08:54)
[2017-07-19] MEDS ORDERED: BUDE3CAP8 PO (08:54)
[2017-07-19 08:58] LABS: CARBON DIOXIDE 31 mmol/L (21-32); CHLORIDE 104 mmol/L (98-107); CREATININE 0.8 mg/dL (0.6-1.3); GLUCOSE 107 mg/dL (74-106); SODIUM SERUM 141 mmol/L (136-145); UREA NITROGEN, BLOOD 9 mg/dL (7-18)
[2017-07-19] MEDS ORDERED: METOCLOPRAMIDE HCL 10 MG/2 ML VIAL IV ONE (09:00)
[2017-07-19] MEDS ORDERED: IV NS 0.9% 1,000 ML BAG IV ONE (09:00)
[2017-07-19] MEDS ORDERED: diphenhydrAMINE HCL 50 MG/ML VIAL IV ONE (09:00)
[2017-07-19 09:04] LABS: ALANINE AMINOTRANSFERASE 32 U/L (12-78); ALBUMIN 3.8 g/dL (3.4-5.0); ALKALINE PHOSPHATASE 70 U/L (46-116); ASPARTATE AMINOTRANSFERASE 24 U/L (15-37); BILIRUBIN,DIRECT 0.2 mg/dL (0.0-0.2); BILIRUBIN,TOTAL 0.9 mg/dL (0.2-1.0); LIPASE 175 U/L (73-393)
--- NOTE | 2017-07-19 09:33 | NUR ---
VERBAL ORDER ZOFRAN 4MG IV X1 DR YUN
[2017-07-19] MEDS ORDERED: ONDANSETRON HCL/PF 4 MG/2 ML VIAL ONE ×2 (09:34→11:52)
[2017-07-19] MEDS ORDERED: ONDANSETRON HCL/PF - ER 4 MG/2 ML VIAL IV ONE (10:00)
[2017-07-19] MEDS ORDERED: LORAZEPAM INJ 2 MG/ML VIAL ONE (10:16)
[2017-07-19] MEDS ORDERED: LORAZEPAM INJ 2 MG/ML VIAL IV ONE (10:30)
--- NOTE | 2017-07-19 11:12 | NUR ---
DR LAURA DIAZ
--- NOTE | 2017-07-19 11:38 | NUR ---
PT UNABLE TO PROVIDE URINE WAS ON BEDPAN. URINATED ON DIAPER. DR YUN AWARE
--- NOTE | 2017-07-19 11:49 | NUR ---
GAVE REPORT TO [facility] [address] SANCHEZ ADMITTING . VOMITING DX
--- NOTE | 2017-07-19 11:51 | NUR ---
VERBAL ORDER ZOFRAN 4MG IV X1 NAUSEA DR YUN
[2017-07-19 12:00] VITALS: BP 133/78
[2017-07-19 12:30] VITALS: BP 133/78
--- NOTE | 2017-07-19 12:30 | NUR ---
RECEIVED PT FROM ER C/O NAUSEA AND DIARRHEA AND UNABLE TO EAT SINCE LAST SUNDAY(TOTAL OF 4 DAYS)WITH DX OF INTRACTABLE VOMITING WITH DEHYDRATION AND COLITIS.PT IS ALERT AND ORIENTED X4.VERBALLY RESPONSIVE.RESPIRATIONS NON LABORED IN ROOM AIR.SKIN INTACT.WITH IV H/L INTACT.WILL NOTIFY DR SANCHEZ FOR ADMITTING ORDERS.CALLED DR SANCHEZ'S OFFICE AND THEIR OFFICE IS CLOSED AT THIS TIME FOR LUNCH BREAK TILL 1:30PM.PT AND CG AT BEDSIDE MADE AWARE.
--- NOTE | 2017-07-19 13:00 | NUR ---
PT HAS NO S/S OF N/V ,PAIN OR DISTRESS.CALL LIGHT PLACED WITHIN REACH.
[2017-07-19] MEDS ORDERED: LORAZEPAM 1 MG TABLET PO PRN (14:00)
[2017-07-19] MEDS ORDERED: IV D5/0.45 NACL 1,000 ML IV PRN (14:00)
[2017-07-19] MEDS: diphenhydrAMINE HCL 50 MG/ML VIAL IV PRN ×2 (14:20→20:25)
[2017-07-19] MEDS ORDERED: METOCLOPRAMIDE HCL 10 MG/10 ML UDC GT PRN (14:30)
[2017-07-19] MEDS: IV D5/0.45 NACL 1,000 ML IV SCH (15:10)
[2017-07-19 16:15] VITALS: BP 107/67
--- NOTE | 2017-07-19 19:27 | NUR ---
PT COMFORTABLY SITTING IN BED WATCHING TV WITH ONGOING IVF OF D51/2 NS AT 75 ML/HR INFUSING WELL.DENIES PAIN OR DISTRESS.CALL LIGHT PLACED WITHIN REACH.
--- NOTE | 2017-07-19 19:30 | NUR ---
MS RN NOTES RECEIVED ON BED A/O X4,BREATHING REGULAR,NOT IN ANY FORM OF DISTRESS.WITH IVF INFUSING VIA IV PUMP ON LEFT AC,INTACT AND PATENT.CLAIMED HAVING SLIGHT NAUSEA,BUT NO ACTUAL VOMITING.CALL LIGHT IN REACH,NEEDS ANTICIPATED.
[2017-07-19 20:00] VITALS: BP 134/64
[2017-07-19] MEDS: METOCLOPRAMIDE HCL 10 MG/10 ML UDC PO PRN (20:24)
--- NOTE | 2017-07-19 20:24 | NUR ---
MS RN NOTES C/O NAUSEA,REGLAN 10MG PO GIVEN,ALONG WITH BENADRYL 50MG IV PER PATIENT REQUEST FOR ITCH.
[2017-07-19] MEDS: OLANZAPINE 10 MG TABLET PO SCH (22:05)
[2017-07-19] MEDS: ATORVASTATIN 40 MG TABLET PO SCH (22:05)
[2017-07-20] VITALS: BP 119/59
[2017-07-20] MEDS: ZOLPIDEM TARTRATE 10 MG TABLET PO PRN (00:16)
--- NOTE | 2017-07-20 00:16 | NUR ---
MS RN NOTES C/O INSOMNIA,AMBIEN 10MG PO GIVEN ORDERED FOR SLEEP.
[2017-07-20] MEDS: IV D5/0.45 NACL 1,000 ML IV SCH (04:38)
--- NOTE | 2017-07-20 06:15 | NUR ---
MS RN NOTES AWAKE,ASKING FOR HER REGLAN AND BENADRYL.MEDS ADMINISTERED BY PILAR BOYCE
[2017-07-20] MEDS: METOCLOPRAMIDE HCL 10 MG/10 ML UDC PO PRN ×3 (06:26→21:46)
[2017-07-20] MEDS: diphenhydrAMINE HCL 50 MG/ML VIAL IV PRN ×3 (06:27→22:02)
[2017-07-20 06:34] LABS: CALCIUM, SERUM 8.7 mg/dL (8.5-10.1); CARBON DIOXIDE 30 mmol/L (21-32); CHLORIDE 109 mmol/L (98-107); CREATININE 0.8 mg/dL (0.6-1.3); GLUCOSE 101 mg/dL (74-106); POTASSIUM 3.3 mmol/L (3.5-5.1); SODIUM SERUM 143 mmol/L (136-145); UREA NITROGEN, BLOOD 12 mg/dL (7-18)
--- NOTE | 2017-07-20 07:14 | NUR ---
MS RN NOTES NO N/V D/ NOTED,IVF IN PROGRESS,MEDS ADMINISTERED,BED ON LOWEST POSITION AND LOCKED.CALL LIGHT IN REACH,NEEDS ATTENDED.ENDORSED TO SARI BOYCE FOR YUMIKO.
--- NOTE | 2017-07-20 07:19 | NUR ---
MS RN OPENING NOTES RECEIVED PATIENT AWAKE IN BED IN NO ACUTE SIGNS OF DISTRESS. A/O X4. VERBALLY RESPONSIVE WITH NO C/O PAIN OR DISCOMFORTS AT THIS TIME. ON ROOM AIR, BREATHING EVEN AND UNLABORED. IVF OF D5 1/2 NS @ 75ML/HR INFUSING VIA LEFT AC, NO SIGNS OF INFILTRATION OR REDNESS AT IV SITE NOTED. BED IN LOW AND LOCKED POSITION. CALL LIGHT IN REACH. WILL CONTINUE TO MONITOR PT ACCORDINGLY.
[2017-07-20 08:00] VITALS: BP 122/84
[2017-07-20] MEDS: BUDESONIDE 3 MG CAP.SR.24H PO SCH (09:03)
[2017-07-20] MEDS: POTASSIUM CHLORIDE 20 MEQ TAB.PRT.SR PO SCH (09:04)
[2017-07-20] MEDS: HYDROCHLOROTHIAZIDE 25 MG TABLET PO SCH (09:04)
[2017-07-20] MEDS: ESCITALOPRAM OXALATE (10 MG) 10 MG TABLET PO SCH (09:04)
[2017-07-20] MEDS: CHOLESTYRAMINE/ASPARTAME 4 G/PKT PACKET PO SCH (09:05)
[2017-07-20] MEDS ORDERED: ONDANSETRON HCL/PF 4 MG/2 ML VIAL IV PRN (10:30)
--- NOTE | 2017-07-20 10:30 | NUR ---
RN NOTES PT C/O NAUSEA, REGLAN 10MG PO GIVEN AT 0626 THIS MORNING AND IT'S Q 6HRS PRN. CALLED DR SANCHEZ WITH ORDER TO GIVE ZOFRAN 8MG IVP Q 4HRS PRN. WILL CARRY OUT ORDER.
[2017-07-20] MEDS: IV D5/0.45 NACL 1,000 ML IV PRN (10:38)
[2017-07-20 15:58] VITALS: BP 124/75
--- NOTE | 2017-07-20 16:49 | NUR ---
RN NOTES DR SANCHEZ CAME AND SEEN PT WITH ORDER TO GIVE IMODIUM 2 CAPS STAT AND PRN AFTER EACH LOOSE STOOL. WILL CONTINUE TO MONITOR.
[2017-07-20] MEDS: LOPERAMIDE HCL (2 MG CAP) 2 MG CAPSULE PO PRN ×2 (17:06→21:50)
[2017-07-20] MEDS: ONDANSETRON HCL/PF 4 MG/2 ML VIAL IV PRN ×2 (17:14→21:27)
--- NOTE | 2017-07-20 17:23 | NUR ---
RN NOTES PATIENT'S IV ACCESS LINE ON LEFT AC INFILTRATED, REMOVED AND APPLIED PRESSURE GAUZE. NEW IV LINE INSERTED TO RIGHT FA G#22 AND SECURED WITH TAPE. WILL CONTINUE TO MONITOR.
--- NOTE | 2017-07-20 18:25 | NUR ---
MS RN CLOSING NOTES PATIENT RESTING IN BED WATCHING TV. A/O X4, SAME ABLE TO MAKE NEEDS KNOWN. PT TOLERATING ROOM AIR, BREATHING EVEN WITH NO SOB NOTED. IVF OF D5 1/2 NS @ 75ML/HR INFUSING VIA RIGHT FA G#22, NO SIGNS OF INFILTRATION OR REDNESS AT IV SITE NOTED. HOB ELEVATED AND MAINTAINED BED IN LOW AND LOCKED POSITION. CALL LIGHT AND BEDSIDE TABLE KEPT WITHIN PT REACH. ALL NEEDS AND CARE ATTENDED WELL. WILL ENDORSED TO RIB PULLER NURSE FOR YUMIKO.
[2017-07-20 20:00] VITALS: BP 128/90
[2017-07-20] MEDS: ATORVASTATIN 40 MG TABLET PO SCH (21:27)
[2017-07-20] MEDS: OLANZAPINE 10 MG TABLET PO SCH (21:28)
--- NOTE | 2017-07-20 21:56 | NUR ---
MS2/RN EPISODE OF LOOSE STOOL, IMODIUM 1 TABLET PO WAS GIVEN ORDERED. WILL MONITOR.
--- NOTE | 2017-07-20 22:15 | NUR ---
MS2/RN C/O NAUSEA, REGLAN 10 MG PO WAS GIVEN AND BENADRYL 50 MG IVP WAS GIVEN ORDERED. WILL MONITOR.
[2017-07-21] MEDS: ZOLPIDEM TARTRATE 10 MG TABLET PO PRN (00:27)
--- NOTE | 2017-07-21 01:51 | NUR ---
MS2/RN PATIENT IS SLEEPING AT THIS TIME, AROUSABLE, APPEAR COMFORTABLE, NO SIGNS OF DISTRESS NOTED, CALL LIGHT IN REACH. WILL CONTINUE TO MONITOR.
[2017-07-21 06:21] LABS: APPEARANCE,URINE CLEAR (CLEAR); BILIRUBIN,URINE NEGATIVE (NEGATIVE); BLOOD, URINE NEGATIVE Ery/uL (NEGATIVE); COLOR,URINE YELLOW (YELLOW); KETONES,URINE NEGATIVE (NEGATIVE); LEUKOCYTE ESTERASE ,URINE 1+ (NEGATIVE); NITRITE, URINE NEGATIVE (NEGATIVE); PH,URINE 5.5 (5.0-8.0); PROTEIN,URINE NEGATIVE (NEGATIVE); UGLUCOSE NEGATIVE (NEGATIVE); UROBILINOGEN,URINE 0.2 EU/dL (0.2)
[2017-07-21 06:27] LABS: BACTERIA,URINE 3+ /HPF (None Seen); RBC,URINE 0-2 /HPF (0-2); SQUAMOUS EPITHELIAL CELL,UR Few /HPF (None Seen)
[2017-07-21] MEDS: IV D5/0.45 NACL 1,000 ML IV PRN (06:41)
--- NOTE | 2017-07-21 07:01 | NUR ---
MS2/RN PATIENT IS AWAKE, ALERT, ORIENTED, COMFORTABLE, NO C/O NAUSEA, NO VOMITING, ALL NEEDS ATTENDED AT THIS TIME, WILL CONTINUE TO MONITOR.
--- NOTE | 2017-07-21 07:20 | NUR ---
MS RN OPENING NOTES PATIENT RECEIVED IN BED AWAKE, A/O X4. HOB ELEVATED. VERBALLY RESPONSIVE, DENIES PAIN, N & V AT THIS TIME. ON ROOM AIR, BREATHING EVEN AND UNLABORED. IVF OF D5 1/2 NS @ 75ML/HR INFUSING VIA IV ACCESS ON RIGHT FA G#22, NO SIGNS OF INFILTRATION OR REDNESS AT IV SITE NOTED. BED IN LOW AND LOCKED POSITION. CALL LIGHT IN REACH. WILL CONTINUE TO MONITOR PT ACCORDINGLY.
[2017-07-21 08:00] VITALS: BP 128/85
[2017-07-21] MEDS: METOCLOPRAMIDE HCL 10 MG/10 ML UDC PO PRN (08:40)
[2017-07-21] MEDS: diphenhydrAMINE HCL 50 MG/ML VIAL IV PRN ×2 (08:40→16:48)
[2017-07-21] MEDS: ESCITALOPRAM OXALATE (10 MG) 10 MG TABLET PO SCH (08:41)
[2017-07-21] MEDS: POTASSIUM CHLORIDE 20 MEQ TAB.PRT.SR PO SCH (08:41)
[2017-07-21] MEDS: HYDROCHLOROTHIAZIDE 25 MG TABLET PO SCH (08:41)
[2017-07-21] MEDS: BUDESONIDE 3 MG CAP.SR.24H PO SCH (08:42)
--- NOTE | 2017-07-21 08:45 | NUR ---
RN NOTES PT C/O NAUSEA AND REQUESTED FOR REGLAN 10MG PO AND BENADRYL 50MG IVP. MEDS GIVEN. WILL CONTINUE TO MONITOR.
[2017-07-21] MEDS: CHOLESTYRAMINE/ASPARTAME 4 G/PKT PACKET PO SCH (08:46)
[2017-07-21] MEDS: ONDANSETRON HCL/PF 4 MG/2 ML VIAL IV PRN (12:16)
[2017-07-21 15:52] VITALS: BP 152/88
--- NOTE | 2017-07-21 18:58 | NUR ---
MS RN CLOSING NOTES PATIENT RESTING IN BED WATCHING TV. A/O X4, SAME ABLE TO MAKE NEEDS KNOWN. PT TOLERATING ROOM AIR, BREATHING EVEN WITH NO SOB NOTED. IVF OF D5 1/2 NS @ 75ML/HR INFUSING VIA RIGHT FA G#22, NO SIGNS OF INFILTRATION OR REDNESS AT IV SITE NOTED. HOB ELEVATED AND MAINTAINED BED IN LOW AND LOCKED POSITION. CALL LIGHT AND BEDSIDE TABLE KEPT WITHIN PT REACH. ALL NEEDS AND CARE ATTENDED WELL. WILL ENDORSED TO SMALL ELECTRIC ENGINE TECHNICIAN NURSE FOR YUMIKO.
--- NOTE | 2017-07-21 19:16 | NUR ---
RN NOTES DR SANCHEZ CAME WITH ORDER TO DISCHARGE PT'S HOME TONIGHT. SPOKE TO PT AND SAID THAT HER CAREGIVER WILL COME TO PICK HER UP AT 1000H. ENDORSED TO HARP MAKER NURSE.
== END 2017-07-21 19:50 | disposition home or self-care (01) | DRG 392 ==
LOC: ER 08:05 → TELE2 11:39 → MEDSG2 12:00
PROVIDERS: ADMIT Family Medicine; ATTEND Family Medicine
DX: K52.9 Noninfective gastroenteritis and colitis, unspecified (principal); E86.0 Dehydration; I34.1 Nonrheumatic mitral (valve) prolapse; F32.9 Major depressive disorder, single episode, unspecified; I10 Essential (primary) hypertension; F41.9 Anxiety disorder, unspecified
CPT/HCPCS: 36415; 76705-TC; 80048-TC; 80076-TC; 81000-TC; 83605-TC; 83690-TC; 84484-TC; 85025-TC; 85730-TC; 87081-TC; 87086-TC; 87186-TC; A4606; J1200; J1885; J2060; J2405; J2765; J3490; J7030; J8597; Z7610

== ENCOUNTER 2017-07-24 10:17 | Emergency (ER) | payer MEDICARE, BC ==
[~2017-07-24] VITALS: Ht 157.5 cm; Wt 61.2 kg
[~2017-07-24 10:17] MED LIST changes: +BUDE3CAP8 PO; -METO-295 PO; +POTA20TA83 PO
--- NOTE | 2017-07-24 10:30 | NUR ---
PRESENTS TO ER C/O NAUSEA AND VOMITING, SEEN HERE LAST WEEK FOR SAME ISSUE. PATIENT IS A/OX 2, BREATHING EVEN AND UNLABORED. NO SOB, NAD, VITALS STABLE. SAFETY AND COMFORT MEASURES IN PLACE. CAREGIVER AT BEDSIDE. AWAITING MD ORDERS.
[2017-07-24] MEDS ORDERED: OLANZAPINE 10 MG VIAL IM ONE ×2 (10:43→11:00)
--- NOTE | 2017-07-24 10:45 | NUR ---
NEW IV STARTED ON RFA, 20G. BLOOD DRAWN AND SENT TO LAB.
[2017-07-24 10:58] LABS: BASOPHILS # (AUTO) 0.1 /CMM (0.0-0.2); BASOPHILS % (AUTO) 1.2 % (0.0-2.0); EOSINOPHILS % (AUTO) 1.1 % (0.0-6.0); HEMATOCRIT 46 % (33-45); HEMOGLOBIN 15.3 g/dL (11.5-14.8); LYMPHOCYTES % (AUTO) 28.1 % (20.0-44.0); MEAN CORPUSCULAR HGB CONC 34 g/dl (31.0-36.0); MEAN CORPUSCULAR VOLUME 87 fL (82-100); MONOCYTES # (AUTO) 0.6 /CMM (0.1-1.30); MONOCYTES % (AUTO) 8.6 % (2.0-12.0); NEUTROPHILS # (AUTO) 4.4 /CMM (1.8-8.9); PLATELET COUNT (AUTO) 245 /CMM (150-450); RDW COEFFICIENT OF VARIATION 14.7 (11.5-15.0); RED BLOOD CELL COUNT(AUTO) 5.22 MIL/uL (4.0-5.2); WHITE BLOOD COUNT (AUTO) 7.3 K/uL (4.3-11.0)
[2017-07-24] MEDS ORDERED: IV NS 0.9% 1,000 ML BAG IV ONE (11:00)
[2017-07-24 11:06] LABS: CALCIUM, SERUM 9.8 mg/dL (8.5-10.1); CARBON DIOXIDE 29 mmol/L (21-32); CHLORIDE 101 mmol/L (98-107); CREATININE 0.9 mg/dL (0.6-1.3); GLUCOSE 142 mg/dL (74-106); SODIUM SERUM 140 mmol/L (136-145); UREA NITROGEN, BLOOD 13 mg/dL (7-18)
[2017-07-24] MEDS ORDERED: POTASSIUM CHLORIDE 20 MEQ TAB.PRT.SR PO ONE ×2 (11:48→12:00)
[2017-07-24] MEDS ORDERED: ONDANSETRON HCL/PF 4 MG/2 ML VIAL ONE (11:48)
[2017-07-24 11:54] LABS: BILIRUBIN,URINE Negative (NEGATIVE); BLOOD, URINE Negative Ery/uL (NEGATIVE); COLOR,URINE Yellow (YELLOW); KETONES,URINE Trace (NEGATIVE); LEUKOCYTE ESTERASE ,URINE Moderate (NEGATIVE); NITRITE, URINE Positive (NEGATIVE); PH,URINE 5.5 (5.0-8.0); PROTEIN,URINE Trace mg/dl (NEGATIVE); UGLUCOSE Negative (NEGATIVE); UROBILINOGEN,URINE 0.2 EU/dL (0.2)
[2017-07-24 11:55] LABS: APPEARANCE,URINE HAZY (CLEAR)
[2017-07-24] MEDS ORDERED: ONDANSETRON HCL/PF - ER 4 MG/2 ML VIAL IV ONE (12:00)
[2017-07-24 12:01] LABS: BACTERIA,URINE Moderate /HPF (None Seen); RBC,URINE 0-2 /HPF (0-2); SQUAMOUS EPITHELIAL CELL,UR Few /HPF (None Seen); WBC,URINE 21-50 /HPF (0-3)
[2017-07-24] MEDS ORDERED: LEVOFLOXACIN 750 MG /D5W 150ML 150 ML IV ONE (12:17)
[2017-07-24] MEDS ORDERED: LEVOFLOXACIN 750 MG /D5W 150ML PIGGYBACK IV ONE (12:30)
[2017-07-24 13:18] VITALS: BP 143/86
--- NOTE | 2017-07-24 13:19 | NUR ---
IV removed. Catheter intact and site benign. Pressure and 4x4 applied to site. No bleeding noted. Patient discharged to home in stable condition. Written and verbal after care instructions given. Patient verbalizes understanding of instruction.
== END 2017-07-24 13:19 | disposition home or self-care (01) ==
LOC: ER 10:18
DX: R11.2 Nausea with vomiting, unspecified (principal); E87.6 Hypokalemia; N39.0 Urinary tract infection, site not specified; F29 Unspecified psychosis not due to a substance or known physiological condition; F32.9 Major depressive disorder, single episode, unspecified; F41.9 Anxiety disorder, unspecified; I10 Essential (primary) hypertension; I34.1 Nonrheumatic mitral (valve) prolapse
CPT/HCPCS: 36415; 80048-TC; 81000-TC; 85025-TC; 87086-TC; 87186-TC; A4606; J1956; J2405; J3490; J7030; Z7610

== ENCOUNTER 2017-12-24 08:08 | Emergency (ER) | payer MEDICARE, BC ==
[~2017-12-24] VITALS: Ht 160 cm; Wt 69.9 kg
--- NOTE | 2017-12-24 08:23 | NUR ---
PT CAME FROM HOME WITH C/O GEN WEAKNESS- MOSTLY ON BILATERAL LOWER EXTREMITIES. REPORTS SHE FELL AROUND 0330, LIVES ALONE AND SHE WAS ABLE TO CALL HER CAREGIVER AROUND 0630 FOR HELP. DENIES HEAD INJURY, [place] EDDY AT [address] VSS. PT AAOX4. SAFETY AND COMFORT MEASURES PROVIDED. WILL MONITOR.
--- NOTE | 2017-12-24 08:30 | NUR ---
UNABLE TO GIVE URINE SAMPLE AT THIS TIME. AWARE.
--- NOTE | 2017-12-24 08:38 | NUR ---
IV ACCESS STARTED. BLOOD DRAWN FOR LABS.
[2017-12-24 08:48] LABS: BASOPHILS % (AUTO) 0.3 % (0.0-2.0); EOSINOPHILS % (AUTO) 1.1 % (0.0-6.0); HEMATOCRIT 46 % (33-45); HEMOGLOBIN 14.9 g/dL (11.5-14.8); LYMPHOCYTES # (AUTO) 1.7 /CMM (0.8-4.8); LYMPHOCYTES % (AUTO) 14.2 % (20.0-44.0); MEAN CORPUSCULAR HEMOGLOBIN 29 PG (26.0-33.0); MEAN CORPUSCULAR HGB CONC 32 g/dl (31.0-36.0); MEAN CORPUSCULAR VOLUME 89 fL (82-100); MONOCYTES # (AUTO) 1.2 /CMM (0.1-1.30); MONOCYTES % (AUTO) 9.7 % (2.0-12.0); NEUTROPHILS % (AUTO) 74.7 % (43.0-81.0); PLATELET COUNT (AUTO) 258 /CMM (150-450); RED BLOOD CELL COUNT(AUTO) 5.18 MIL/uL (4.0-5.2)
[2017-12-24 08:57] LABS: CALCIUM, SERUM 9.5 mg/dL (8.5-10.1); CARBON DIOXIDE 29 mmol/L (21-32); CHLORIDE 103 mmol/L (98-107); CREATININE 0.9 mg/dL (0.6-1.3); GLUCOSE 106 mg/dL (74-106); POTASSIUM 3.7 mmol/L (3.5-5.1); SODIUM SERUM 140 mmol/L (136-145); UREA NITROGEN, BLOOD 16 mg/dL (7-18)
--- NOTE | 2017-12-24 09:03 | NUR ---
PT TAKEN TO CT.
[2017-12-24 09:04] LABS: ALANINE AMINOTRANSFERASE 26 U/L (12-78); ALBUMIN 3.8 g/dL (3.4-5.0); ALKALINE PHOSPHATASE 81 U/L (46-116); ASPARTATE AMINOTRANSFERASE 21 U/L (15-37); BILIRUBIN,DIRECT 0.1 mg/dL (0.0-0.2); BILIRUBIN,TOTAL 0.7 mg/dL (0.2-1.0); TOTAL PROTEIN, SERUM 7.6 g/dL (6.4-8.2)
[2017-12-24 09:05] LABS: TROPONIN I < 0.017 ng/mL (0.00-0.056)
[2017-12-24 09:08] LABS: INR 0.95 (0.87-1.13)
--- NOTE | 2017-12-24 09:42 | NUR ---
PROVIDED WITH WATER. CALLED FOR A WALKER PER MD ORDER.
--- NOTE | 2017-12-24 09:55 | NUR ---
IV removed. Catheter intact and site benign. Pressure and 4x4 applied to site. No bleeding noted.
[2017-12-24 09:58] VITALS: BP 129/78
--- NOTE | 2017-12-24 10:00 | NUR ---
PT ABLE TO WALK WITHOUT ANY DIFFICULTY WITH A WALKER. AWARE.
--- NOTE | 2017-12-24 10:12 | NUR ---
Patient discharged to home in stable condition. Written and verbal after care instructions given. Patient verbalizes understanding of instruction.
[2017-12-25] MEDS ORDERED: BUPR300T52 PO (11:33)
== END 2017-12-24 10:12 | disposition home or self-care (01) ==
LOC: ER 08:09
DX: R53.1 Weakness (principal); I10 Essential (primary) hypertension; R55 Syncope and collapse; F32.9 Major depressive disorder, single episode, unspecified; F41.9 Anxiety disorder, unspecified; Z60.2 Problems related to living alone; W18.30XA Fall on same level, unspecified, initial encounter; Y93.89 Activity, other specified; Y92.091 Bathroom in other non-institutional residence as the place of occurrence of the external cause; Y99.8 Other external cause status
CPT/HCPCS: 36415; 70450; 71045; 80048; 80076; 83605; 84484; 85025; 85730; 87040 ×2; 93005; 99285; A4606; Z7610

== ENCOUNTER 2017-12-25 09:33 | Inpatient (IN) | payer MEDICARE, BC ==
[~2017-12-25] VITALS: Ht 162.6 cm; Wt 68.0 kg
[2017-12-25] MEDS ORDERED: HYDROCODONE/APAP 5/325MG 1 EACH TABLET ONE (10:20)
[2017-12-25] MEDS ORDERED: ONDANSETRON 4 MG TAB.RAPDIS ONE (10:21)
[2017-12-25 10:30] LABS: BASOPHILS % (AUTO) 0.1 % (0.0-2.0); EOSINOPHILS % (AUTO) 0.3 % (0.0-6.0); HEMATOCRIT 48 % (33-45); HEMOGLOBIN 15.3 g/dL (11.5-14.8); LYMPHOCYTES # (AUTO) 0.9 /CMM (0.8-4.8); LYMPHOCYTES % (AUTO) 7.6 % (20.0-44.0); MEAN CORPUSCULAR HEMOGLOBIN 28 PG (26.0-33.0); MEAN CORPUSCULAR HGB CONC 32 g/dl (31.0-36.0); MEAN CORPUSCULAR VOLUME 89 fL (82-100); MONOCYTES # (AUTO) 1.1 /CMM (0.1-1.30); MONOCYTES % (AUTO) 9.3 % (2.0-12.0); NEUTROPHILS # (AUTO) 9.7 /CMM (1.8-8.9); NEUTROPHILS % (AUTO) 82.7 % (43.0-81.0); PLATELET COUNT (AUTO) 256 /CMM (150-450); RDW COEFFICIENT OF VARIATION 15.1 (11.5-15.0); RED BLOOD CELL COUNT(AUTO) 5.41 MIL/uL (4.0-5.2); WHITE BLOOD COUNT (AUTO) 11.8 K/uL (4.3-11.0)
[2017-12-25] MEDS ORDERED: IV NS 0.9% 500 ML BAG IV ONE (10:30)
[2017-12-25] MEDS ORDERED: HYDROCODONE/APAP 5/325MG 1 EACH TABLET PO ONE (10:30)
[2017-12-25] MEDS ORDERED: ONDANSETRON 4 MG TAB.RAPDIS PO ONE (10:30)
[2017-12-25 10:31] LABS: CALCIUM, SERUM 9.3 mg/dL (8.5-10.1); CARBON DIOXIDE 29 mmol/L (21-32); CHLORIDE 102 mmol/L (98-107); CREATININE 0.9 mg/dL (0.6-1.3); GLUCOSE 118 mg/dL (74-106); SODIUM SERUM 139 mmol/L (136-145); UREA NITROGEN, BLOOD 12 mg/dL (7-18)
[2017-12-25 10:35] LABS: INR 0.96 (0.85-1.15)
[2017-12-25 10:36] LABS: ALANINE AMINOTRANSFERASE 28 U/L (12-78); ALBUMIN 3.3 g/dL (3.4-5.0); ALKALINE PHOSPHATASE 94 U/L (46-116); ASPARTATE AMINOTRANSFERASE 34 U/L (15-37); BILIRUBIN,DIRECT 0.3 mg/dL (0.0-0.2); BILIRUBIN,TOTAL 1.2 mg/dL (0.2-1.0); TOTAL PROTEIN, SERUM 7.3 g/dL (6.4-8.2)
[2017-12-25 10:39] LABS: TROPONIN I < 0.017 ng/mL (0.00-0.056)
[2017-12-25 11:09] LABS: CREATINE KINASE MB 7.4 ng/mL (0-3.6)
[2017-12-25] MEDS ORDERED: BUPR300T52 PO (11:33)
[2017-12-25] MEDS ORDERED: POTASSIUM CHLORIDE 20 MEQ TAB.PRT.SR PO ONE ×2 (11:46→12:00)
[2017-12-25 12:05] VITALS: BP 139/80
[2017-12-25 12:07] LABS: APPEARANCE,URINE Clear (CLEAR); BILIRUBIN,URINE Negative (NEGATIVE); BLOOD, URINE Trace-intact Ery/uL (NEGATIVE); COLOR,URINE Yellow (YELLOW); KETONES,URINE 15 (NEGATIVE); LEUKOCYTE ESTERASE ,URINE Small (NEGATIVE); NITRITE, URINE Positive (NEGATIVE); PH,URINE 5.5 (5.0-8.0); PROTEIN,URINE Negative (NEGATIVE); UGLUCOSE Negative (NEGATIVE); UROBILINOGEN,URINE 0.2 EU/dL (0.2)
[2017-12-25 12:08] LABS: BACTERIA,URINE Few /HPF (None Seen); SQUAMOUS EPITHELIAL CELL,UR Few /HPF (None Seen)
[2017-12-25] MEDS ORDERED: IV D5 / 0.2% NACL 1,000 ML IV PRN (13:30)
[2017-12-25] MEDS ORDERED: LORAZEPAM 1 MG TABLET PO PRN (14:30)
[2017-12-25] MEDS: IV D5/0.45 NACL 1,000 ML IV PRN (15:06)
[2017-12-25 16:19] VITALS: BP 124/67
[2017-12-25] MEDS ORDERED: OLANZAPINE 10 MG TABLET PO SCH (18:00)
[2017-12-25] MEDS ORDERED: Z GUARD REMEDY 2 OZ OINT TP PRN (19:00)
[2017-12-25] MEDS: HYDROCODONE/APAP 5/325MG 1 EACH TABLET PO PRN (19:59)
[2017-12-25 20:07] VITALS: BP 122/68
[2017-12-26] MEDS: IV D5/0.45 NACL 1,000 ML IV PRN (01:25)
[2017-12-26 07:28] LABS: CALCIUM, SERUM 8.7 mg/dL (8.5-10.1); CARBON DIOXIDE 26 mmol/L (21-32); CHLORIDE 106 mmol/L (98-107); CREATININE 0.8 mg/dL (0.6-1.3); GLUCOSE 124 mg/dL (74-106); POTASSIUM 3.3 mmol/L (3.5-5.1); SODIUM SERUM 141 mmol/L (136-145); UREA NITROGEN, BLOOD 10 mg/dL (7-18)
[2017-12-26] MEDS: HYDROCODONE/APAP 5/325MG 1 EACH TABLET PO PRN (07:38)
[2017-12-26 08:00] VITALS: BP 137/71
[2017-12-26 08:50] VITALS: BP 137/71
[2017-12-26] MEDS ORDERED: BUPROPION XL 150 MG TAB.ER.24 PO SCH (09:00)
[2017-12-26] MEDS ORDERED: HYDROCHLOROTHIAZIDE 25 MG TABLET PO SCH (09:00)
[2017-12-26] MEDS ORDERED: POTASSIUM CHLORIDE 20 MEQ TAB.PRT.SR PO SCH (09:00)
[2017-12-26] MEDS ORDERED: ATORVASTATIN 40 MG TABLET PO SCH (09:00)
[2017-12-26] MEDS ORDERED: ESCITALOPRAM OXALATE (10 MG) 10 MG TABLET PO SCH (09:00)
[2017-12-26] MEDS ORDERED: CHOLESTYRAMINE/ASPARTAME 4 G/PKT PACKET PO SCH (09:00)
== END 2017-12-26 14:20 | disposition home or self-care (01) | DRG 641 ==
LOC: EDBD 09:34 → ER 09:34 → MERGE 09:34 → MEDSG2 11:51 → MED 19:47
PROVIDERS: ADMIT Family Medicine; ATTEND Family Medicine
DX: E86.0 Dehydration (principal); I10 Essential (primary) hypertension; R42 Dizziness and giddiness; I34.1 Nonrheumatic mitral (valve) prolapse; E87.6 Hypokalemia; N28.1 Cyst of kidney, acquired; Z79.899 Other long term (current) drug therapy; M19.90 Unspecified osteoarthritis, unspecified site; W19.XXXA Unspecified fall, initial encounter; Y92.009 Unspecified place in unspecified non-institutional (private) residence as the place of occurrence of the external cause; Z87.891 Personal history of nicotine dependence
CPT/HCPCS: 36415; 70450-TC; 71045-TC; 72125-TC; 80048-TC; 80076-TC; 81000-TC; 82550-TC; 82553-TC; 84484-TC; 85025-TC; 85730-TC; 87081-TC; 87086-TC; 87186-TC; 97112-TC; 97116-TC; 97530-TC; A4606; J3490; J7040; Q0162; Z7610

== ENCOUNTER 2018-01-30 10:51 | Day surgery (SDC) | payer MEDICARE, BC ==
[~2018-01-30 10:51] MED LIST changes: +BUPR300T52 PO
[2018-01-30] MEDS ORDERED: LIDOCAINE HCL/PF 1% 30 ML SDV ONE (12:06)
[2018-01-30] MEDS ORDERED: BUPIVACAINE 0.5 % PF 150 MG/30 ML VIAL ONE (12:06)
[2018-01-30] MEDS ORDERED: HYDROMORPHONE INJ 2 MG/ML DISP.SYRIN ONE (12:09)
[2018-01-30] MEDS ORDERED: CEFAZOLIN 1 GM ONE (12:14)
[2018-01-30] MEDS ORDERED: TRIAMCINOLONE ACETONIDE SUSP 40 MG/ML 1 ML ONE (13:25)
== END 2018-01-30 15:00 | disposition home or self-care (01) ==
LOC: DS 10:51
PROVIDERS: ATTEND Podiatrist
DX: M89.8X7 Other specified disorders of bone, ankle and foot (principal); S93.334A Other dislocation of right foot, initial encounter; S93.134A Subluxation of interphalangeal joint of right lesser toe(s), initial encounter; X58.XXXA Exposure to other specified factors, initial encounter; Y93.89 Activity, other specified; Y92.89 Other specified places as the place of occurrence of the external cause; Y99.8 Other external cause status; I10 Essential (primary) hypertension; M19.90 Unspecified osteoarthritis, unspecified site; F41.9 Anxiety disorder, unspecified; F32.9 Major depressive disorder, single episode, unspecified; Z79.899 Other long term (current) drug therapy; Z87.891 Personal history of nicotine dependence
CPT/HCPCS: 28080; 28100; 28108 ×2; 28220; 28225; 28313; 64702 ×2; 71045; 73620; 87070; 87075; 87077; 87186; 88305; 88311; 88312; J0690 ×2; J1100; J1170; J2405; J2704; J3490 ×3; A6402; Z7610

== ENCOUNTER 2018-08-12 06:00 | Inpatient (IN) | payer MEDICARE, BC ==
[~2018-08-12] VITALS: Ht 165.1 cm; Wt 55.3 kg
--- NOTE | 2018-08-12 06:10 | NUR ---
PT BIBCAREGIVER FOR NAUSEA/VOMITTING/DIARRHEA X 3 DAYS. PT WAS SEEN AT [facility], BUT REFUSED ADMISSION. PT AXO3. RESPIRATIONS EVEN AND UNLABORED. PT PUT ON THE DEVELOPMENTAL TRAINING COUNSELOR AND PULSE OX.
[2018-08-12] MEDS ORDERED: IV NS 0.9% 500 ML BAG IV ONE (06:30)
--- NOTE | 2018-08-12 06:33 | NUR ---
CHIEF ADMINISTRATIVE OFFICER AT BEDSIDE. LABS DRAWN AND SENT.
--- NOTE | 2018-08-12 06:37 | NUR ---
EKG AT BEDSIDE.
[2018-08-12 06:42] LABS: BASOPHILS # (AUTO) 0.1 /CMM (0.0-0.2); BASOPHILS % (AUTO) 1.1 % (0.0-2.0); HEMATOCRIT 45 % (33-45); HEMOGLOBIN 14.9 g/dL (11.5-14.8); LYMPHOCYTES # (AUTO) 1.5 /CMM (0.8-4.8); LYMPHOCYTES % (AUTO) 24.8 % (20.0-44.0); MEAN CORPUSCULAR HGB CONC 33 g/dl (31.0-36.0); MEAN CORPUSCULAR VOLUME 84 fL (82-100); MONOCYTES # (AUTO) 0.7 /CMM (0.1-1.30); MONOCYTES % (AUTO) 11.6 % (2.0-12.0); NEUTROPHILS # (AUTO) 3.5 /CMM (1.8-8.9); NEUTROPHILS % (AUTO) 59.5 % (43.0-81.0); PLATELET COUNT (AUTO) 253 /CMM (150-450); RED BLOOD CELL COUNT(AUTO) 5.35 MIL/uL (4.0-5.2); WHITE BLOOD COUNT (AUTO) 5.9 K/uL (4.3-11.0)
[2018-08-12 06:51] LABS: CARBON DIOXIDE 28 mmol/L (21-32); CHLORIDE 101 mmol/L (98-107); CREATININE 0.8 mg/dL (0.6-1.3); GLUCOSE 120 mg/dL (74-106); POTASSIUM 3.1 mmol/L (3.5-5.1); SODIUM SERUM 140 mmol/L (136-145); UREA NITROGEN, BLOOD 7 mg/dL (7-18)
[2018-08-12 07:14] LABS: APPEARANCE,URINE SL CLOUDY (CLEAR); BILIRUBIN,URINE 1+ (NEGATIVE); BLOOD, URINE 1+ Ery/uL (NEGATIVE); KETONES,URINE 1+ (NEGATIVE); LEUKOCYTE ESTERASE ,URINE 2+ (NEGATIVE); NITRITE, URINE POSITIVE (NEGATIVE); PROTEIN,URINE 1+ mg/dl (NEGATIVE); UGLUCOSE NEGATIVE (NEGATIVE); UROBILINOGEN,URINE 0.2 EU/dL (0.2)
[2018-08-12 07:15] LABS: COLOR,URINE DARK YELLOW (YELLOW)
[2018-08-12 07:18] LABS: BACTERIA,URINE 4+ /HPF (None Seen)
--- NOTE | 2018-08-12 07:24 | NUR ---
REPORT GIVEN TO STEPHANIE BOYCE FOR YUMIKO.
[2018-08-12] MEDS ORDERED: METOCLOPRAMIDE HCL 10 MG/2 ML VIAL IV ONE (07:30)
--- NOTE | 2018-08-12 07:31 | NUR ---
received report from susy BOYCE for sadi, patient resting on room air, breathing evenly and unlabored. Will continue to monitor accordingly.
[2018-08-12] MEDS ORDERED: METOCLOPRAMIDE HCL 10 MG/2 ML VIAL ONE (07:33)
[2018-08-12] MEDS ORDERED: ALPR1TAB7 PO (07:59)
[2018-08-12] MEDS ORDERED: ZOLP10TA6 PO (07:59)
[2018-08-12] MEDS ORDERED: [UNRECOGNIZED DRUG - OTHER] SL (07:59)
[2018-08-12] MEDS ORDERED: TELM40TA5 PO (07:59)
[2018-08-12] MEDS ORDERED: DULO30CA51 PO (07:59)
--- NOTE | 2018-08-12 08:05 | NUR ---
Dr. Emmanuel at bedside, seen and examined the patient and will be the admitting MD.
[2018-08-12] MEDS ORDERED: POTASSIUM CHLORIDE 20 MEQ TAB.PRT.SR PO ONE ×2 (08:30)
--- NOTE | 2018-08-12 08:42 | NUR ---
called [facility] and spoke to Kristina BOYCE for sadi.
[2018-08-12 09:00] VITALS: BP 137/96
--- NOTE | 2018-08-12 09:00 | NUR ---
wheeled patient via gurney accompanied by EMT in no apparent distress noted.
[2018-08-12 09:10] VITALS: BP 137/96
--- NOTE | 2018-08-12 09:10 | NUR ---
DISTRICT SUPERVISOR NOTES PATIENT ADMITTED FROM ER FEMALE MED/SURGE ON DX OF HYPOKALEMIA. PATIENT A/O X3, HAS NO ACUTE RESPIRATORY DISTRESS, UNLABORED, LUNGS ARE CLEAR DURING AUSCULTATION. PATIENT WAS COMPLAINING OF NAUSEA, AND PAIN 3/10 ABDOMEN, AND HAS A LOOSE STOOL. V/S TAKEN BP-137/96, P-87, R-18, T-98, O2-100 ROOM AIR. SKIN ASSESSMENT DONE REDNESS SACRAL AREA PICTURE TAKEN, APPLIED Z-GUARD. PATIENT AMBULATORY WITH ASSIST. NEEDS ATTENDED AND ANTICIPATED. CALL LIGHT WITHIN TO REACH. DR SANCHEZ AWARE OF NEW PATIENT AND MEDICATION. BED SIDE COMMODE NEXT TO THE BED. SAFETY PRECAUTION MAINTAINED ALL THE TEGAN. BED ALARM ON. CONTINUED MONITORING.
[2018-08-12] MEDS ORDERED: LORAZEPAM 1 MG TABLET PO PRN (11:30)
[2018-08-12] MEDS: POTASSIUM CHLORIDE 20 MEQ TAB.PRT.SR PO SCH ×2 (12:24→16:59)
[2018-08-12] MEDS ORDERED: ZOLPIDEM TARTRATE 10 MG TABLET PO PRN ×2 (12:30→21:00)
[2018-08-12] MEDS: PROCHLORPERAZINE EDISYLATE 10 MG/2 ML VIAL IM PRN (12:31)
--- NOTE | 2018-08-12 12:31 | NUR ---
RN NOTES ADMINISTERED COMPAZINE 5 MG /ML IM LEFT OUTER GLUTEAL AREA FOR NAUSEA PRN PRESCRIBED. PATIENT REFUSED CYMBALTA PER PATIENT CAUSE DIARRHEA. CONTINUED MONITORING.
[2018-08-12] MEDS: POTASSIUM CHLORIDE IV PRN ×2 (12:34→22:47)
[2018-08-12] MEDS: D5W IV PRN ×2 (12:34→22:47)
[2018-08-12] MEDS ORDERED: LOSARTAN POTASSIUM 50 MG TABLET PO SCH (13:00)
[2018-08-12] MEDS ORDERED: DULOXETINE HCL 30 MG CAPSULE.DR PO SCH (13:00)
--- NOTE | 2018-08-12 13:16 | NUR ---
RN NOTES ADMINISTERED ATIVAN 1 MG PO PRN FOR ANXIETY PER PATIENT REQUEST, V/S TAKEN BP 124/69, P-87, CONTINUED MONITORING.
[2018-08-12] MEDS ORDERED: PROCHLORPERAZINE MALEATE 5 MG TABLET PO PRN (14:00)
[2018-08-12] MEDS: BUPROPION XL 150 MG TAB.ER.24 PO SCH (14:39)
[2018-08-12] MEDS: ESCITALOPRAM OXALATE (10 MG) 10 MG TABLET PO SCH (14:39)
[2018-08-12 16:00] VITALS: BP 125/80
--- NOTE | 2018-08-12 18:30 | NUR ---
RN NOTES SCHEDULED MEDICATION ADMINISTERED,V/S STABLE. INFUSING [id number] AT 100 ML/HR ON RIGHT WRIST INTACT. PATIENT STABLE. CALL LIGHT WITHIN TO REACH. BED ALARM ON. PATIENT TURN AND REPOSTION SELF IN THE BED. MEDICATION WERE ADMINISTERED FOR NAUSEA, AND ANXIETY EFFECTIVE. ENDORSED ONCOMING NURSE FOR PLAN OF CARE.
--- NOTE | 2018-08-12 19:20 | NUR ---
MS RN OPENING NOTES Received patient sleeping in bed, easily arousable. Breathing even and unlabored. No distress noted, on room air. Peripheral IV infusing @ 100mL/hr. Call light within reach. Bed in lowest, locked position. Bed alarm on. Patient stable as endorsed by the AM RN. Will continue to monitor accordingly
[2018-08-12 20:00] VITALS: BP 92/52
[2018-08-12] MEDS ORDERED: Z GUARD REMEDY 2 OZ OINT TP PRN (20:00)
[2018-08-12 21:15] VITALS: BP 100/61
[2018-08-12] MEDS ORDERED: OLANZAPINE 5 MG TABLET PO SCH (22:00)
--- NOTE | 2018-08-12 22:03 | NUR ---
RN NOTES Patient requesting for ambien- 10mg PO given as ordered.
[2018-08-13] MEDS: PROCHLORPERAZINE EDISYLATE 10 MG/2 ML VIAL IM PRN (02:03)
--- NOTE | 2018-08-13 02:05 | NUR ---
RN NOTES PATIENT C/O NAUSEA AND REQUESTED FOR THE IM SHOT. ADMINISTERED COMPAZINE 5 MG /ML IM RIGHT OUTER GLUTEAL AREA FOR NAUSEA PRN PRESCRIBED.
--- NOTE | 2018-08-13 06:15 | NUR ---
MS RN CLOSING NOTES Patient in sleeping in bed, comfortable. Breathing even and unlabored. Not in any distress. Peripheral IV infusing at 100mL/hr. All needs attended to. All due meds given as ordered. Safety measures in place. Will endorse YUMIKO to oncoming RN
[2018-08-13 06:53] LABS: CALCIUM, SERUM 9.9 mg/dL (8.5-10.1); CARBON DIOXIDE 26 mmol/L (21-32); CHLORIDE 104 mmol/L (98-107); CREATININE 0.8 mg/dL (0.6-1.3); GLUCOSE 138 mg/dL (74-106); POTASSIUM 3.6 mmol/L (3.5-5.1); SODIUM SERUM 140 mmol/L (136-145); UREA NITROGEN, BLOOD 10 mg/dL (7-18)
--- NOTE | 2018-08-13 07:30 | NUR ---
RN MS NOTES PT IN BED, AWAKE, ALERT AND VERBALLY RESPONSIVE, DENIES PAIN OR ANY DISCOMFORT, RESPIRATIONS NORMAL, CALL LIGHT WITHIN REACH, KEPT WARM AND COMFORTABLE IN BED.
[2018-08-13 08:00] VITALS: BP 120/73
[2018-08-13] MEDS: CHOLESTYRAMINE/ASPARTAME 4 G/PKT PACKET PO SCH ×2 (09:00→09:13)
[2018-08-13] MEDS ORDERED: POTASSIUM CHLORIDE 20 MEQ TAB.PRT.SR PO SCH (09:00)
[2018-08-13] MEDS: BUPROPION XL 150 MG TAB.ER.24 PO SCH (09:12)
[2018-08-13] MEDS: ESCITALOPRAM OXALATE (10 MG) 10 MG TABLET PO SCH (09:13)
--- NOTE | 2018-08-13 11:01 | NUR ---
RN MS NOTES PT RESTING COMFORTABLY IN BED, NO SIGN OF PAIN OR DISTRESS, RECEIVED CALL FROM DR. SANCHEZ, PER MD, PT FOR DISCHARGE AT NOONTIME, NEEDS ATTENDED.
--- NOTE | 2018-08-13 13:25 | NUR ---
RN MS NOTES PT AWAKE, ALERT AND ORIENTED, SITTING IN HER CHAIR, DENIES PAIN, NOT IN DISTRESS, PT AMBULATES WITH SLOW STEADY GAIT, SEEN BY DR. JIANG, DISCHARGE AND MEDICATION INSTRUCTIONS PROVIDED TO PT, VERBALIZED UNDERSTANDING, BELONGINGS ACCOUNTED FOR, PT REFUSED SKIN CHECK AND PHOTOS, PT VERY EAGER TO GO HOME, ACCOMPANIED PT TO HOSPITAL LOBBY, PICKED UP BY CAREGIVER [place]EL, LEFT VIA PRIVATE CAR IN STABLE CONDITION.
== END 2018-08-13 13:25 | disposition home or self-care (01) | DRG 641 ==
LOC: ER 06:06 → MED 08:32
PROVIDERS: ADMIT Family Medicine; ATTEND Family Medicine
DX: E87.6 Hypokalemia (principal); K51.90 Ulcerative colitis, unspecified, without complications; E86.0 Dehydration; F41.9 Anxiety disorder, unspecified; I10 Essential (primary) hypertension; I34.1 Nonrheumatic mitral (valve) prolapse; N28.1 Cyst of kidney, acquired; F32.9 Major depressive disorder, single episode, unspecified; Z79.899 Other long term (current) drug therapy; G47.00 Insomnia, unspecified
CPT/HCPCS: 36415; 80048-TC; 81000-TC; 83735-TC; 85025-TC; 87081-TC; 87086-TC; 87186-TC; G0378; J0780; J2765; J3480; J7030; J7040; J7070

== ENCOUNTER 2018-08-19 05:53 | Emergency (ER) | payer MEDICARE, BC ==
[~2018-08-19] VITALS: Ht 165.1 cm; Wt 53.8 kg
[~2018-08-19 05:53] MED LIST changes: -ATOR40TA PO; -BUDE3CAP8 PO; -BUPR300T52 PO; -CHOL4PAC2 PO; +DULO30CA51 PO; -ESCI10TA PO; -HYDR25TA4 PO; -LORA1TAB PO; -OLAN15TA3 PO; +TELM40TA5 PO; +ZOLP10TA6 PO; +[UNRECOGNIZED DRUG - OTHER] SL
[2018-08-19 05:57] VITALS: BP 118/69
--- NOTE | 2018-08-19 06:08 | NUR ---
MADISON EDDY AT BEDSIDE.
== END 2018-08-19 06:30 | disposition home or self-care (01) ==
LOC: ER 05:56
DX: R11.0 Nausea (principal); F41.9 Anxiety disorder, unspecified; I10 Essential (primary) hypertension; F32.9 Major depressive disorder, single episode, unspecified; Z98.890 Other specified postprocedural states; Z88.0 Allergy status to penicillin
CPT/HCPCS: Z7502

== ENCOUNTER 2018-09-17 05:55 | Emergency (ER) | payer MEDICARE, BC ==
[~2018-09-17] VITALS: Ht 162.6 cm; Wt 53.5 kg
--- NOTE | 2018-09-17 06:25 | NUR ---
BIB CG W/ C/O ABD PAIN. _ N/V. LBM TWO HOURS AGO. DENIED ANY OTHER SYMPTOMS. VSS. PLACED ON A MONITOR . WILL CONT TO MONITOR ,
[2018-09-17] MEDS ORDERED: IV NS 0.9% 500 ML BAG IV ONE (06:30)
--- NOTE | 2018-09-17 06:33 | NUR ---
IV 20G STARTED ON R WRIST. BLOOD DRAWN AND SENT TO THE LAB. TECH AT THE BED SIDE FOR ECG.
[2018-09-17 06:37] LABS: BASOPHILS # (AUTO) 0.1 /CMM (0.0-0.2); BASOPHILS % (AUTO) 1.1 % (0.0-2.0); EOSINOPHILS % (AUTO) 5.1 % (0.0-6.0); HEMATOCRIT 47 % (33-45); HEMOGLOBIN 15.3 g/dL (11.5-14.8); LYMPHOCYTES # (AUTO) 2.5 /CMM (0.8-4.8); MEAN CORPUSCULAR HGB CONC 33 g/dl (31.0-36.0); MEAN CORPUSCULAR VOLUME 86 fL (82-100); MONOCYTES # (AUTO) 1.2 /CMM (0.1-1.30); MONOCYTES % (AUTO) 14.5 % (2.0-12.0); NEUTROPHILS # (AUTO) 4.1 /CMM (1.8-8.9); NEUTROPHILS % (AUTO) 49.3 % (43.0-81.0); PLATELET COUNT (AUTO) 310 /CMM (150-450); RED BLOOD CELL COUNT(AUTO) 5.43 MIL/uL (4.0-5.2); WHITE BLOOD COUNT (AUTO) 8.2 K/uL (4.3-11.0)
[2018-09-17 07:04] LABS: CALCIUM, SERUM 9.8 mg/dL (8.5-10.1); CARBON DIOXIDE 30 mmol/L (21-32); CHLORIDE 98 mmol/L (98-107); GLUCOSE 112 mg/dL (74-106); SODIUM SERUM 137 mmol/L (136-145); UREA NITROGEN, BLOOD 25 mg/dL (7-18)
[2018-09-17 07:10] LABS: ALANINE AMINOTRANSFERASE 38 U/L (12-78); ALBUMIN 3.5 g/dL (3.4-5.0); ALKALINE PHOSPHATASE 109 U/L (46-116); ASPARTATE AMINOTRANSFERASE 26 U/L (15-37); BILIRUBIN,DIRECT 0.2 mg/dL (0.0-0.2); BILIRUBIN,TOTAL 0.9 mg/dL (0.2-1.0); LIPASE 189 U/L (73-393); TOTAL PROTEIN, SERUM 7.7 g/dL (6.4-8.2)
--- NOTE | 2018-09-17 07:18 | NUR ---
REPORT REC'D CHRIS BOYCE FOR YUMIKO
--- NOTE | 2018-09-17 07:18 | NUR ---
Larisa diop in [facility] - 09/17/18 at 0718 by NICO REPORT CARRIE FROM CHRIS BOYCE FOR YUMIKO.
[2018-09-17 07:30] VITALS: BP 122/52
== END 2018-09-17 07:31 | disposition home or self-care (01) ==
LOC: ER 05:58
DX: R10.84 Generalized abdominal pain (principal); I10 Essential (primary) hypertension; F41.9 Anxiety disorder, unspecified; F32.9 Major depressive disorder, single episode, unspecified; Z98.890 Other specified postprocedural states; Z88.0 Allergy status to penicillin
CPT/HCPCS: 36415; 80048; 80076; 83690; 84484; 85025; 93005; 99284; J7040 ×2

== ENCOUNTER 2020-03-02 08:50 | Emergency (ER) | payer BC, MEDICARE ==
[~2020-03-02] VITALS: Ht 165.1 cm; Wt 56.7 kg
[~2020-03-02 08:50] MED LIST changes: -DULO30CA51 PO; +DULO30CA52 PO; -TELM40TA5 PO; +TELM40TA8 PO
--- NOTE | 2020-03-02 09:02 | NUR ---
PT came to ER bibcaregiver sent by psychiatrist more depress denies SI/HI. pt able to follow commands. awaiting for MD kumar
[2020-03-02 09:31] LABS: BASOPHILS % (AUTO) 0.7 % (0.0-2.0); EOSINOPHILS % (AUTO) 2.6 % (0.0-6.0); HEMATOCRIT 48 % (33-45); LYMPHOCYTES # (AUTO) 2.1 /CMM (0.8-4.8); LYMPHOCYTES % (AUTO) 29.7 % (20.0-44.0); MEAN CORPUSCULAR HGB CONC 33 g/dl (31.0-36.0); MEAN CORPUSCULAR VOLUME 86 fL (82-100); MONOCYTES # (AUTO) 0.8 /CMM (0.1-1.30); MONOCYTES % (AUTO) 11.5 % (2.0-12.0); NEUTROPHILS % (AUTO) 55.5 % (43.0-81.0); PLATELET COUNT (AUTO) 212 /CMM (150-450); RED BLOOD CELL COUNT(AUTO) 5.65 MIL/uL (4.0-5.2); WHITE BLOOD COUNT (AUTO) 7.2 K/uL (4.3-11.0)
[2020-03-02 10:13] LABS: BILIRUBIN,URINE Negative (NEGATIVE); BLOOD, URINE Negative Ery/uL (NEGATIVE); COLOR,URINE Yellow (YELLOW); LEUKOCYTE ESTERASE ,URINE Moderate (NEGATIVE); NITRITE, URINE Negative (NEGATIVE); PROTEIN,URINE Negative (NEGATIVE); UGLUCOSE Negative (NEGATIVE); UROBILINOGEN,URINE 0.2 EU/dL (0.2)
[2020-03-02 10:19] LABS: BACTERIA,URINE Few /HPF (None Seen); RBC,URINE 0-2 /HPF (0-2); SQUAMOUS EPITHELIAL CELL,UR Few /HPF (None Seen)
[2020-03-02 10:33] LABS: CALCIUM, SERUM 9.4 mg/dL (8.5-10.1); CARBON DIOXIDE 28 mmol/L (21-32); CHLORIDE 104 mmol/L (98-107); CREATININE 0.8 mg/dL (0.6-1.3); GLUCOSE 102 mg/dL (74-106); POTASSIUM 4.2 mmol/L (3.5-5.1); SODIUM SERUM 139 mmol/L (136-145); UREA NITROGEN, BLOOD 9 mg/dL (7-18)
[2020-03-02 10:37] LABS: ALANINE AMINOTRANSFERASE 29 U/L (12-78); ALBUMIN 3.3 g/dL (3.4-5.0); ALCOHOL, BLOOD < 3 mg/dL (0-0); ALKALINE PHOSPHATASE 99 U/L (46-116); ASPARTATE AMINOTRANSFERASE 24 U/L (15-37); BILIRUBIN,DIRECT 0.1 mg/dL (0.0-0.2); BILIRUBIN,TOTAL 0.4 mg/dL (0.2-1.0); TOTAL PROTEIN, SERUM 7.4 g/dL (6.4-8.2)
[2020-03-02 10:39] LABS: ACETAMINOPHEN 0 ug/ml (10-30)
[2020-03-02] MEDS ORDERED: LORAZEPAM 1 MG TABLET ONE (10:45)
[2020-03-02] MEDS ORDERED: LEVOFLOXACIN (500MG) 500 MG TABLET ONE (10:45)
[2020-03-02] MEDS ORDERED: LEVOFLOXACIN (250MG) 250 MG TABLET PO ONE (11:00)
[2020-03-02] MEDS ORDERED: LORAZEPAM 1 MG TABLET PO ONE (11:00)
--- NOTE | 2020-03-02 11:35 | NUR ---
Patient is resting comfortably in bed with eyes closed. Easily aroused. VSS
--- NOTE | 2020-03-02 13:00 | NUR ---
patient noted to be aggressive towards staff. received verbal order from Dr Cárdenas for Haldol 5mg IM. carried out
[2020-03-02] MEDS ORDERED: HALOPERIDOL LACTATE INJ 5 MG/ML VIAL ONE (13:01)
--- NOTE | 2020-03-02 13:14 | NUR ---
CALLED [facility] FOR EVAL, LEFT VOICEMAIL
--- NOTE | 2020-03-02 13:25 | NUR ---
BED [id number]
[2020-03-02] MEDS ORDERED: HALOPERIDOL LACTATE INJ 5 MG/ML VIAL IM ONE (13:30)
--- NOTE | 2020-03-02 13:49 | NUR ---
[facility] [phone]
--- NOTE | 2020-03-02 14:18 | NUR ---
Patient is resting comfortably in bed with eyes closed. Easily aroused. VSS
--- NOTE | 2020-03-02 14:21 | NUR ---
BINITROTOLUENE OPERATOR ADINA AT BEDSIDE
--- NOTE | 2020-03-02 14:36 | NUR ---
COVID RESULT: NEGATIVE
[2020-03-02 15:17] VITALS: BP 132/89
--- NOTE | 2020-03-02 15:18 | NUR ---
Patient discharged to home in stable condition. Written and verbal after care instructions given. Patient verbalizes understanding of instruction. PT ACCOMPANIED BY FRUIT PRESERVER & AMB WITH STEADY GAIT UPON LEAVING ED.
--- NOTE | 2020-03-02 16:39 | NUR ---
2:15pm SW met with the patient at bed side. Patient is an 80-year-old female. Patient was yelling Lauren as SW approached. SW observed that the patient had a one-point restraint on patients left wrist. SW introduced herself and asked the patient who Lauren was. Patient kept yelling I want to see Lauren! Let me see Lauren. SW attempted to gather information regarding who Lauren was and what the patient needed. Patient began to cooperate stating that Lauren was patients caregiver and that the patient wanted to go home. SW asked for verbal consent from the patient to speak to Lauren. Patient provided verbal consent for this SW to call Lauren and asked this SW if she could go home. SW informed the patient that the patients physician would provide clearance when the patient is ready to go home. Patient was calmer but kept stating I want to see Lauren. I want to see Lauren. Patient observed to be restless and agitated, as evidenced by this SWs observation of patient fighting restraints. Patient expressed being worried about her blood pressure. SW acknowledged patients concern and assisted patient with relaxation techniques, such as deep breathing. Patient observed to become calmer, however SW was unable to gather much information from patient. SW to contact patients caregiver Lauren for additional information.
--- NOTE | 2020-03-02 16:40 | NUR ---
2:30pm SW followed up with patients caregiver Lauren as the patient provided consent. Per Lauren, patient psychiatrist advised the patient to seek medical clearance and a psychiatric evaluation. Lauren informed this SW that the patient has had prior hospitalizations and that the patient requests voluntary psychiatric treatment at least once a year. Lauren reported that the patient stated that she is depressed. Lauren also informed this SW that Lauren is the patients only caregiver in addition to the patients son. Lauren asked this SW if patient can return home, as Lauren will take care of the patient. SHAWNA thanked Lauren for this information and SW stated that she would return to speak to the patient.
--- NOTE | 2020-03-02 16:41 | NUR ---
2:35pm Patient was calm and cooperative the second time this SW approached. SW stated that this SW would relay the patients request to the doctor. SW redirected the patient in attempt to assess patients psychosocial needs. Patient stated that she had been depressed for the last few days. Patient reported that she has not been diagnosed with depression and is followed by a psychiatrist Dr. Blanco. Patient was not able to provide contact information on Dr. Blanco. Patient reported that her stomach hurt and stated that she had not eaten since last night because she was not hungry. Patient denies SI and HI. Patient denied auditory and visual hallucinations. Patient was calm and cooperative. Patients tone of voice was low. Patients thought process was loose and unorganized at times; however patient was able to be redirected by this SW. Plan: Per request of ED physician Dr. Cárdenas, crisis evaluation is needed to evaluate the patient.
== END 2020-03-02 15:19 | disposition home or self-care (01) ==
LOC: ER 08:53
DX: F32.9 Major depressive disorder, single episode, unspecified (principal); N39.0 Urinary tract infection, site not specified; Z20.828 Contact with and (suspected) exposure to other viral communicable diseases; Z88.0 Allergy status to penicillin; I10 Essential (primary) hypertension; Z87.19 Personal history of other diseases of the digestive system; Z82.49 Family history of ischemic heart disease and other diseases of the circulatory system
CPT/HCPCS: 36415; 80048; 80076; 80299; 80307; 80320; 81001; 85025; 87086; 87426; 96372; 99284; J1630; C9803; G0480

== ENCOUNTER 2020-08-25 12:25 | Outpatient (CLI) | payer MEDICARE, MEDICAID | END 2020-08-25 23:59 | disposition home or self-care (01) | LOC: MSC 12:25 | PROVIDERS: ATTEND Internal Medicine | DX: F41.9 Anxiety disorder, unspecified (principal); Z86.711 Personal history of pulmonary embolism; Z79.01 Long term (current) use of anticoagulants; Z88.0 Allergy status to penicillin; I10 Essential (primary) hypertension; M19.90 Unspecified osteoarthritis, unspecified site; Z87.19 Personal history of other diseases of the digestive system; Z90.49 Acquired absence of other specified parts of digestive tract; Z79.899 Other long term (current) drug therapy ==

== ENCOUNTER → 2020-10-06 | Outpatient (CLI) | payer MEDICARE, OTHER | END | disposition home or self-care (01) | LOC: MSC 15:00 | PROVIDERS: ATTEND Internal Medicine | DX: R10.13 Epigastric pain (principal); I10 Essential (primary) hypertension; I82.409 Acute embolism and thrombosis of unspecified deep veins of unspecified lower extremity; Z79.01 Long term (current) use of anticoagulants; F39 Unspecified mood [affective] disorder; F41.9 Anxiety disorder, unspecified; F32.9 Major depressive disorder, single episode, unspecified; G47.00 Insomnia, unspecified; Z86.59 Personal history of other mental and behavioral disorders; Z79.899 Other long term (current) drug therapy ==

== ENCOUNTER 2020-10-08 09:54 | Outpatient (CLI) | payer MEDICARE, MEDICAID ==
[2020-10-08 11:40] LABS: BASOPHILS # (AUTO) 0.1 /CMM (0.0-0.2); BASOPHILS % (AUTO) 0.6 % (0.0-2.0); EOSINOPHILS % (AUTO) 1.6 % (0.0-6.0); HEMATOCRIT 44 % (33-45); HEMOGLOBIN 14.5 g/dL (11.5-14.8); LYMPHOCYTES # (AUTO) 1.9 /CMM (0.8-4.8); LYMPHOCYTES % (AUTO) 20.9 % (20.0-44.0); MEAN CORPUSCULAR HGB CONC 33 g/dl (31.0-36.0); MEAN CORPUSCULAR VOLUME 89 fL (82-100); MONOCYTES # (AUTO) 0.9 /CMM (0.1-1.30); MONOCYTES % (AUTO) 10.3 % (2.0-12.0); NEUTROPHILS # (AUTO) 6.1 /CMM (1.8-8.9); NEUTROPHILS % (AUTO) 66.6 % (43.0-81.0); PLATELET COUNT (AUTO) 285 /CMM (150-450); RED BLOOD CELL COUNT(AUTO) 4.96 MIL/uL (4.0-5.2); WHITE BLOOD COUNT (AUTO) 9.1 K/uL (4.3-11.0)
[2020-10-08 12:40] LABS: C-REACTIVE PROTEIN 0.2 mg/dL (0.0-0.9); THYROID STIMULATING HORMONE 3.694 uIU/mL (0.358-3.74)
[2020-10-08 12:58] LABS: ALBUMIN 3.5 g/dL (3.4-5.0); BILIRUBIN,TOTAL 0.6 mg/dL (0.2-1.0); CALCIUM, SERUM 8.9 mg/dL (8.5-10.1); CREATININE 0.9 mg/dL (0.6-1.3); MAGNESIUM 2.1 mg/dL (1.8-2.4); POTASSIUM 4.2 mmol/L (3.5-5.1)
== END 2020-10-08 23:59 | disposition home or self-care (01) ==
LOC: MSC 09:54
PROVIDERS: ATTEND Internal Medicine
DX: R10.9 Unspecified abdominal pain (principal); F41.9 Anxiety disorder, unspecified; M19.90 Unspecified osteoarthritis, unspecified site; Z87.19 Personal history of other diseases of the digestive system
CPT/HCPCS: 36415; 80053; 82607; 82746; 83036; 83735; 84100; 84443; 85025; 85652; 86140; 86200; 86431; G0463

== ENCOUNTER 2020-10-15 10:44 | Outpatient (CLI) | payer MEDICAID, MEDICARE | END 2020-10-15 23:59 | disposition home or self-care (01) | LOC: CT 10:44 | PROVIDERS: ATTEND Internal Medicine | DX: S22.42XA Multiple fractures of ribs, left side, initial encounter for closed fracture (principal); S22.089A Unspecified fracture of T11-T12 vertebra, initial encounter for closed fracture; S32.019A Unspecified fracture of first lumbar vertebra, initial encounter for closed fracture; K57.30 Diverticulosis of large intestine without perforation or abscess without bleeding; K42.9 Umbilical hernia without obstruction or gangrene; K40.90 Unilateral inguinal hernia, without obstruction or gangrene, not specified as recurrent; M47.816 Spondylosis without myelopathy or radiculopathy, lumbar region; K76.89 Other specified diseases of liver; X58.XXXA Exposure to other specified factors, initial encounter; Y93.89 Activity, other specified; Y92.89 Other specified places as the place of occurrence of the external cause; Y99.8 Other external cause status ==